=== PATIENT | female | born 1955 | race Caucasian/White ===

== ENCOUNTER → 2017-08-22 08:44 | Outpatient (CLI) | payer BC, SELFPAY ==
--- NOTE | 2017-08-22 08:49 | MM_ITS ---
MM Dig SC mamm unilat LT CAD CAD Screening ORDERING PHYSICIAN : Jennifer Yip PATIENT AGE: 62 years GENDER: Female COMPARISON: Previous mammograms: August INDICATION: Right mastectomy. 2017 routine follow-up left mammogram TECHNIQUE: Standard CC and MLO images were obtained left breast. R2 CAD reviewed. Limited compression on on initial left MLO view due to the patient's Port-A-Cath. A additional well only performed with more anteriorly is helpful FINDINGS: ===== LEFT BREAST: No significant interval change. No dominant mass nor suspicious calcification. Minimal fibroglandular elements throughout the left breast Follow-up in one year adequate Stable small left axillary lymph node measuring up to 9 mm and is unchanged since 2013. Fatty hilum seen laterally at this lymph node A second more lateral 4.5 mm small benign stable lymph node also seen towards the axillary left breast. Also stable since 2013 . These lymph node is been present since 2006 studies as well IMPRESSION: Stable left breast with no new areas of concern. Follow-up in one year recommended BI-RADS Category: 2 Benign Finding(s) RECOMMENDED FOLLOW-UP: 1YR - 1 YEAR FOLLOW-UP (A letter has been sent to the patient regarding results of the study.)
== END ==
PROVIDERS: Family Provider Family Medicine; PCP Family Medicine; Visit Provider Internal Medicine Hematology & Oncology
DX: Z12.31 Encounter for screening mammogram for malignant neoplasm of breast (principal); C50.911 Malignant neoplasm of unspecified site of right female breast; Z17.0 Estrogen receptor positive status [ER+]
CPT/HCPCS: 77067

== ENCOUNTER → 2017-12-25 13:57 | Outpatient (POV) | payer BC, SELFPAY | PROVIDERS: Family Provider Family Medicine; PCP Family Medicine | DX: Z00.00 Encounter for general adult medical examination without abnormal findings (principal) ==

== ENCOUNTER 2018-02-20 11:00 | Outpatient (RCR) | payer BC, SELFPAY ==
--- NOTE | 2017-12-23 10:37 | HMH.PTOPEV ---
PT Outpatient Evaluation Rehab PT Outpatient Evaluation Start: 12/23/17 10:21 Freq: Status: Active Protocol: Document 12/23/17 10:21 CHEPE (Rec: 12/23/17 10:37 CHEPE [id number]) Electronically Signed By Rafael Antonio, PT 12/23/17 10:21 Outpatient Therapy Subjective History Subjective History Pt presents w/generalized weakness and lymphedema following chemo treatments for R sided berast cancer s/p R mastectomy September 2012. Pt reports insidious onset R SH pain beginning 2-3 weeks ago, and reports fatigue following ~30min of wt. bearing activity , and swelling around abdominal area. Chief Complaint Pain Stiff Swelling Weakness Symptom Type Ache Sharp Dull Symptoms Relieved By Rest/Positioning Symptoms Aggravated By Standing Walking Prior Functional Limitations Reaching Lifting Housework Standing Walking Current Functional Limitations Reaching Lifting Housework Standing Walking Symptom Description Constant but Variable Level of pain today (0-10) 3 Pain scale - at its best (0-10) 3 Pain scale - at its worst (0-10) 5 Shoulder/Elbow Eval Shoulder Objective Measurements Palpation Tenderness tenderness shoulder exam standard right tenderness over the bicipital tendon right shoulder exam standard tenderness over the SA bursa shoulder right exam standard Shoulder Palpation Findings Tenderness Trigger Point Shoulder Palpation Overall Comment 2-3/4 Shoulder ROM Right Shoulder Abduction Active Range of 0-80 Motion (degrees) Shoulder Abduction Passive Range of 0-140 Motion (degrees) Shoulder Flexion Active Range of Motion 0-90 (degrees) Query Text: Shoulder Flexion Passive Range of Motion 0-140 (degrees) Shoulder MMT Left Shoulder Abduction Strength Grade 4 Good Shoulder Flexion Strength Grade 4 Good Right Shoulder Abduction Strength Grade 4- Good-
--- NOTE | 2018-01-22 11:11 | HMH.RHREAS ---
Rehab Reassessment Rehab OP Re-assessment Start: 01/22/18 11:01 Freq: Status: Active Protocol: Document 01/22/18 11:03 CHEPE (Rec: 01/22/18 11:11 CHEPE [id number]) Electronically Signed By Rafael Antonio, PT 01/22/18 11:03 Rehab Re-assessment Subjective Subjective Pt reports 0-3/10 R SH pain on VAS w/activity, and feels 90% better overall since I Eval Objective Objective Notes AROM: R SH FLX 0-140, ABD 0- 120 MMT: R SH FLX 4/5, ABD 4/5, B LE HIP ABD/EXT/FLX/ADD 4/5 GAIT ENDURANCE: 12MIN TTP: R SH 1-24 Assessment Progress Assessment Progressing as Expected Assessment Notes PT W/IMPROVED ROM, STRENGTH, AND TTP Patient goals met STG'S 09/09 LTG'S 06/17 Goals Not Met STG'S 06/12, LTG'S 02/14 Plan Plan Pt to cont. w/skilled PT to make further improvements w/ ROM, strength, and TTP to allow for optimal function Frequency of Therapy 2-3x/wk Duration of therapy 2-4wks Time and Billing Re-Eval Time 15 Re-Eval Billing Units 1 PHYSICIAN CERTIFICATION: I certify the specified therapy services for [place] Cristina Landon are required, authorized, and reviewed every 30 days.
== END 2018-02-20 11:01 | disposition home or self-care (01) ==
LOC: PT 11:00
PROVIDERS: Family Provider Family Medicine; PCP Family Medicine; Visit Provider Family Medicine
DX: M62.81 Muscle weakness (generalized) (principal); Z90.11 Acquired absence of right breast and nipple
CPT/HCPCS: 97010; 97014; 97016; 97110; 97140; 97163; 97164; 97760; G0283

== ENCOUNTER → 2018-10-02 08:44 | Outpatient (CLI) | payer BC, SELFPAY ==
--- NOTE | 2018-10-02 08:52 | MM_ITS ---
MM Dig SC mamm unilat LT CAD Ordering Physician: Catalino Soria MD Patient Age: 63 years Female HISTORY.:: Right breast cancer with right mastectomy. September 2016. Taking Anastrozole daily and Zometa every 6 months No new complaints. Noncontributory family history. COMPARISON: . Previous left mammogram August 2017 along with bilateral mammogram August 2016, , July 2015 also June 2013 TECHNIQUE: CC, MLO, axillary cc view left breast FINDINGS: Minimal residual fibroglandular elements but no significant new areas of concern at the remaining left breast. Left breast. No new areas of significant concern Stable benign intramammary node at the deep axillary left breast. measuring up to 8.5 mm size. Period just posterior to this is a smaller stable intramammary node measuring up to 4.6 mm mm size. BOTH of these is been present and stable since June 2013. Period Otherwise the Overall parenchymal pattern stable since 2013 with no new suspicious or dominant mass. No architectural change Left mammogram follow-up one year recommended IMPRESSION: ......] Stable left breast. No new areas of concern. Stable small benign intramammary nodes deep left breast-unchanged since studies dating back to 2013 Follow-up left mammogram in 1 year recommended BI-RADS Category: 2 Benign Finding(s) RECOMMENDED FOLLOW-UP: 1YR 1 YEAR FOLLOW-UP A letter has been sent to the patient regarding results of the study.)
== END ==
PROVIDERS: PCP Family Medicine; Visit Provider Family Medicine
DX: Z08 Encounter for follow-up examination after completed treatment for malignant neoplasm (principal); Z85.3 Personal history of malignant neoplasm of breast; Z90.11 Acquired absence of right breast and nipple
CPT/HCPCS: 77067

== ENCOUNTER → 2019-04-24 13:51 | Outpatient (CLI) | payer MEDICARE, OTHER, SELFPAY ==
--- NOTE | 2019-04-24 13:58 | XR_ITS ---
PROCEDURE: XR CHEST 2V CLINICAL HISTORY: BRONCHITIS Cough and wheezing COMPARISON: No exams were available for comparison FINDINGS: The cardiomediastinal silhouette and pulmonary vascularity are within normal limits. The lungs are clear without infiltrates, suspicious nodules, or pleural effusions. Multilevel thoracic spondylosis with endplate hypertrophic change and thoracic curvature convex right IMPRESSION: No acute findings. Dictated by: Shailesh Traylor MD 04/24/2019 17:49 Electronically signed by Shailesh Traylor MD in [place] 04/24/2019 17:49
== END ==
PROVIDERS: PCP Family Medicine; Visit Provider Physician Assistant
DX: J40 Bronchitis, not specified as acute or chronic (principal)
CPT/HCPCS: 71046

== ENCOUNTER → 2019-06-25 09:49 | Outpatient (CLI) | payer MEDICARE, OTHER, SELFPAY ==
--- NOTE | 2019-06-25 09:59 | XR_ITS ---
PROCEDURE: XR KNEE LT 3V CLINICAL INDICATION: BILAT KNEE PAIN COMPARISON: No exams were available for comparison FINDINGS: No fracture or dislocation. No lytic or blastic change. There is normal mineralization. There is mild degenerative loss of the medial compartment cartilaginous joint space. Other findings:There is no significant joint effusion. IMPRESSION: No acute findings. Dictated by: Wagner Barbosa 06/25/2019 12:07 Electronically signed by Wagner Barbosa in [place] 06/25/2019 12:07
--- NOTE | 2019-06-25 09:59 | XR_ITS ---
PROCEDURE: XR KNEE RT 3V CLINICAL INDICATION: BILAT KNEE PAIN COMPARISON: None FINDINGS: No fracture or dislocation. No lytic or blastic change. There is normal mineralization. Mild asymmetrical loss of medial compartment cartilaginous joint space suggesting osteoarthritis is noted. Other findings:Chronic appearing periosteal reaction is seen along the lateral shaft of the proximal fibula. IMPRESSION: No acute findings. Dictated by: Wagner Barbosa 06/25/2019 12:09 Electronically signed by Wagner Barbosa in [place] 06/25/2019 12:09
== END ==
PROVIDERS: PCP Family Medicine; Visit Provider Family Medicine
DX: M25.562 Pain in left knee (principal); M25.561 Pain in right knee
CPT/HCPCS: 73562

== ENCOUNTER → 2019-11-18 08:48 | Outpatient (CLI) | payer MEDICARE, OTHER, SELFPAY ==
--- NOTE | 2019-11-18 08:50 | MM_ITS ---
PROCEDURE: MM DIG SC MAMM UNILAT LT CAD DIGITAL BREAST TOMOSYNTHESIS INCLUDED Patient Age:64Y CLINICAL INDICATION: SCREENING no hormones. No new complaints. Noncontributory family history Right mastectomy for breast cancer COMPARISON: DMSB DIG MAMM-SCREEN CONCHIS from 07/13/2014 DMSB DIG MAMM-SCREEN CONCH[facility] from 07/18/2015 BR US BREAST-RT COMPLETE W/AXILLA from 08/10/2016 DMDBAV DIG MAMM-DX CONCHIS W/AVWS W/CAD from 08/10/2016 DMDXUR DIG MAMM-DX UNI-RT W/CAD from 08/20/2016 SCUNILT MM Dig SC mamm unilat LT CAD from 08/22/2017 DIG MAMM-SCREEN CONCHIS from 10/02/2018 TECHNIQUE: Left breast only standard CC and MLO images were obtained. R2 CAD reviewed. Bilateral digital breast tomosynthesis included. FINDINGS: [id number] l residual fibroglandular elements but no significant new areas of concern at the remaining left breast. Left breast. No new areas of significant concern Stable benign intramammary node at the deep axillary left breast. measuring up to 8 the mm size.. Just posterior to this is a smaller stable intramammary node measuring up to 4.6 mm mm size. BOTH of these is been present and stable since September 2018 and June 2013.. Mole markers again noted as well Overall parenchymal pattern stable since 2019. No new suspicious or dominant mass. No architectural change Left mammogram follow-up one year recommended IMPRESSION: Stable left breast. No new areas of concern. Stable small benign intramammary nodes deep left breast-unchanged since studies dating back to 2013 Follow-up left mammogram in 1 year recommended BI-RAD Category: 2 Benign Finding(s) FOLLOW-UP: 1YR 1 Year Follow-up (A letter has been sent to the patient regarding results of the study.) Dictated by: Kevin Barnes MD 11/19/2019 10:13 Electronically signed by Kevin Barnes MD in [place] 11/19/2019 10:13
== END ==
PROVIDERS: PCP Family Medicine; Visit Provider Family Medicine
DX: Z12.31 Encounter for screening mammogram for malignant neoplasm of breast (principal)
CPT/HCPCS: 77063; 77067

== ENCOUNTER → 2020-11-25 10:17 | Outpatient (CLI) | payer MEDICARE, OTHER, SELFPAY ==
--- NOTE | 2020-11-25 10:20 | MM_ITS ---
PROCEDURE INFORMATION: Exam: MG Screening 3D Mammography Exam date and time: 11/25/2020 10:20 AM Age: 65 years old Clinical indication: Encounter for screening mammogram for malignant neoplasm of breast. Personal history of right breast carcinoma treated with mastectomy. TECHNIQUE: Imaging protocol: Screening tomosynthesis and 2D mammography including computer-aided detection (CAD) when performed. COMPARISON: 1. MG MM DIG SC MAMM UNILAT LT CAD 11/18/2019 9:02 AM 2. MG DIG MAMM-SCREEN CONCHIS 10/02/2018 9:11 AM 3. MG SCUNILT MM Dig SC mamm unilat LT CAD 08/22/2017 9:02 AM FINDINGS: MAMMOGRAPHY: Breast composition: There are scattered areas of fibroglandular density. Mass: No new suspicious masses. Architectural distortion: No suspicious distortion. Calcifications: No suspicious calcifications. Asymmetric density: None. Skin thickening: None. Axillary adenopathy: None. IMPRESSION: No mammographic evidence of malignancy in the left breast. Annual screening is recommended unless otherwise clinically indicated. ASSESSMENT: BI-RADS Category 1: Negative
== END ==
PROVIDERS: PCP Family Medicine; Referring Provider Internal Medicine Hematology & Oncology; Visit Provider Family Medicine
DX: Z12.31 Encounter for screening mammogram for malignant neoplasm of breast (principal)
CPT/HCPCS: 77063; 77067

== ENCOUNTER → 2022-01-10 09:49 | Outpatient (CLI) | payer MEDICARE, OTHER, SELFPAY ==
--- NOTE | 2022-01-10 09:54 | MM_ITS ---
PROCEDURE INFORMATION: Exam: MG Left Screening 3D Mammography Exam date and time: 01/10/2022 9:49 AM Age: 66 years old Clinical indication: Screening examination . Personal history of right breast carcinoma treated with mastectomy. TECHNIQUE: Imaging protocol: Left Screening tomosynthesis and 2D mammography including computer-aided detection (CAD) when performed. COMPARISON: 1. MG MM DIG SC MAMM UNILAT LT CAD 11/25/2020 10:21 AM 2. MG MM DIG SC MAMM UNILAT LT CAD 11/18/2019 9:02 AM 3. MG DIG MAMM-SCREEN CONCHIS 10/02/2018 9:11 AM FINDINGS: MAMMOGRAPHY: Breast composition: There are scattered areas of fibroglandular density. Mass: No suspicious masses. Architectural distortion: No suspicious distortion. Calcifications: No suspicious calcifications. Asymmetric density: None. Skin thickening: None. Axillary adenopathy: None. IMPRESSION: No mammographic evidence of malignancy. Annual screening is recommended unless otherwise clinically indicated. ASSESSMENT: BI-RADS Category 1: Negative
== END ==
PROVIDERS: PCP Family Medicine; Visit Provider Family Medicine
DX: Z12.31 Encounter for screening mammogram for malignant neoplasm of breast (principal)
CPT/HCPCS: 77063; 77067

== ENCOUNTER → 2023-01-17 09:44 | Outpatient (CLI) | payer MEDICARE, OTHER, SELFPAY ==
--- NOTE | 2023-01-17 09:48 | MM_ITS ---
PROCEDURE INFORMATION: Exam: MG Left Screening 3D Mammography Exam date and time: 01/17/2023 9:46 AM Age: 67 years old Clinical indication: Screening mammogram. TECHNIQUE: Imaging protocol: Left Screening tomosynthesis and 2D mammography including computer-aided detection (CAD) when performed. COMPARISON: 1. MG MM DIG SC MAMM UNILAT LT CAD 01/10/2022 9:49 AM 2. MG MM DIG SC MAMM UNILAT LT CAD 11/25/2020 10:21 AM 3. MG MM DIG SC MAMM UNILAT LT CAD 11/18/2019 9:02 AM 4. MG DIG MAMM-SCREEN CONCHIS 10/02/2018 9:11 AM FINDINGS: MAMMOGRAPHY: Breast composition: There are scattered areas of fibroglandular density. There are scattered areas of fibroglandular density. Mass: Stable benign-appearing subcentimeter nodules are present in the left breast. No new or morphologically suspicious nodule has developed to suggest malignancy. Architectural distortion: No new or suspicious architectural distortion. Calcifications: No new or suspicious calcifications are present Asymmetric density: No new or suspicious asymmetric density is present Skin thickening: None. Axillary adenopathy: None. IMPRESSION: No mammographic evidence of malignancy. Recommend annual screening mammography unless otherwise clinically indicated. ASSESSMENT: BI-RADS category 2: Benign
== END ==
PROVIDERS: PCP Family Medicine; Visit Provider Family Medicine
DX: Z12.31 Encounter for screening mammogram for malignant neoplasm of breast (principal)
CPT/HCPCS: 77063; 77067

== ENCOUNTER 2024-03-09 10:33 | Outpatient (CLI) | payer MEDICARE, OTHER, SELFPAY ==
--- NOTE | 2024-03-09 10:40 | XR_ITS ---
PROCEDURE INFORMATION: Exam: XR Right Knee Exam date and time: 03/09/2024 10:59 AM Age: 68 years old Clinical indication: Pain; Knee; Right; Additional info: Chronic pain, nki TECHNIQUE: Imaging protocol: Radiologic exam of the right knee. Views: 3 views. COMPARISON: CR XR KNEE RT 3V 03/09/2024 10:59 AM FINDINGS: Bones/joints: No evidence of acute fracture or malalignment. No significant knee joint effusion. Mild tricompartmental degenerative osteoarthrosis with peaking of the tibial spines and minor marginal osteophytosis. Remainder joint space narrowing in the medial compartment. Soft tissues: Unremarkable. IMPRESSION: 1. No evidence of acute osseous abnormality in the right knee. 2. Mild tricompartmental degenerative osteoarthrosis, not significantly progressed from 06/25/2019 radiograph.
--- NOTE | 2024-03-09 10:40 | XR_ITS ---
PROCEDURE INFORMATION: Exam: XR Left Knee Exam date and time: 03/09/2024 10:59 AM Age: 68 years old Clinical indication: Knee; Left; Patient HX: Chronic pain, nki TECHNIQUE: Imaging protocol: Radiologic exam of the left knee. Views: 3 views. COMPARISON: CR XR KNEE LT 3V 06/25/2019 10:16 AM FINDINGS: Bones/joints: No evidence of acute fracture or malalignment. No significant knee joint effusion. Mild tricompartmental degenerative osteoarthrosis with peaking of the tibial spines and minor marginal osteophytosis. Remainder joint space narrowing in the medial compartment. Soft tissues: Unremarkable. IMPRESSION: 1. No evidence of acute osseous abnormality in the left knee. 2. Mild tricompartmental degenerative osteoarthrosis, not significantly progressed from 06/25/2019 radiograph.
== END 2024-03-09 23:59 | disposition home or self-care (01) ==
LOC: RAD 10:35
PROVIDERS: PCP Family Medicine; Visit Provider Family Medicine
DX: M25.561 Pain in right knee (principal); M25.562 Pain in left knee
CPT/HCPCS: 73562

== ENCOUNTER 2024-03-11 10:14 | Outpatient (CLI) | payer MEDICARE, OTHER, SELFPAY ==
--- NOTE | 2024-03-11 10:17 | MM_ITS ---
PROCEDURE INFORMATION: Exam: MG Left Screening 3D Mammography Exam date and time: 03/11/2024 10:10 AM Age: 69 years old Clinical indication: Screening examination. History of right breast cancer TECHNIQUE: Imaging protocol: Left Screening tomosynthesis and 2D mammography including computer-aided detection (CAD) when performed. COMPARISON: 1. MG MM DIG SC MAMM UNILAT LT CAD 01/17/2023 9:46 AM 2. MG MM DIG SC MAMM UNILAT LT CAD 01/10/2022 9:49 AM FINDINGS: MAMMOGRAPHY: Breast composition: There are scattered areas of fibroglandular density. Mass: None. Architectural distortion: None. Calcifications: No suspicious calcifications. Asymmetric density: None. Skin thickening: None. Axillary adenopathy: None. Other findings: The patient is status post right mastectomy IMPRESSION: No mammographic evidence of malignancy. Annual screening is recommended unless otherwise clinically indicated. ASSESSMENT: BI-RADS Category 1: Negative.
== END 2024-03-11 23:59 | disposition home or self-care (01) ==
LOC: RAD 10:15
PROVIDERS: PCP Family Medicine; Visit Provider Family Medicine
DX: Z12.31 Encounter for screening mammogram for malignant neoplasm of breast (principal)
CPT/HCPCS: 77063; 77067

== ENCOUNTER 2024-07-30 12:03 | Day surgery (SDC) | payer MEDICARE, OTHER, SELFPAY ==
[2024-07-29 11:16] VITALS: BMI 34.5
[2024-07-30 12:22] VITALS: BP 149/65; PULSE 72; RESP 18; TEMP 36.4; O2SAT 99
[2024-07-30] MEDS: LACTATED RINGERS 1000ML 1,000 ML 50 ML IV (12:30)
--- NOTE | 2024-07-30 13:38 | P.HP_ITS ---
History of Present Illness *Admission Date: 07/30/24 *Reason for visit:: Surveillance/personal history of adenomatous polyp *History of present illness: Mrs. Landon is a 69-year-old female who is here for surveillance colonoscopy secondary to a personal history of an adenomatous polyp. The examination is deemed medically necessary for surveillance colonoscopy. The patient has been seen, interviewed and examined prior to the procedure by both myself and the anesthesia provider. [facility] Disclaimer: The information contained in this section may have been updated after the patient was seen, as this information can be updated by other users. Medical History (Updated 07/30/24 @ 13:39 by Alfonso Iraheta II, MD) Hypertension Hypothyroid Breast cancer Surgical History History of mastectomy Family History Other No significant family history Social History Smoking Status: Never smoker alcohol intake: never current occupational status: retired Travel in the last 8 weeks: None caffeine: No Have you lived/traveled outside [place] in past 30 days?: No Contact w/someone who lives/traveled outside US past 30 days?: No Exposure to someone with infectious disease in past 14 days?: No Do you have a fever (greater than 100.4 F or 38 C)?: No Have you tested positive for COVID-19: No Exposed to someone with COVID-19 in past 14 days?: No Do you have a sore throat?: No Do you have a cough?: No Do you have any weakness?: No Do you have any diarrhea?: No Are you experiencing any unusual bleeding?: No Do you have any muscle aches/pain?: No Do you have any abdominal pain?: No Are you experiencing loss of taste or smell?: No Other Medical History Have you received the Pneumonia Vaccine: Yes Review of Systems Review of Systems Review of systems (narrative): Negative *Cardiovascular Comments: Negative *Gastrointestinal Comments: Negative *Genitourinary Comments: Negative *Musculoskeletal Comments: Negative *Neurologic Comments: Negative Meds Home Medications and Allergies Home Medications ?Medication ?Instructions ?Recorded ?Confirmed ?Type anastrozole 1 mg tablet 1 mg PO DAILY breast cancer 09/09/18 07/30/24 History levothyroxine 100 mcg tablet 100 mg PO DAILY thyroid 09/09/18 07/30/24 History lisinopril 10 1 tab PO DAILY bp 09/09/18 07/30/24 History mg-hydrochlorothiazide 12.5 mg tablet New Prescriptions to Start Prescriptions: Allergies Allergy/AdvReac Type Severity Reaction Status Date / Time famotidine Allergy Rash Verified 07/30/24 12:32 Exam Data for Last 24 hours Vital signs and Labs for Last 24 Hours: Temp Pulse Resp BP Pulse Ox O2 Del Method 97.6 F 72 18 149/65 H 99 Room Air 07/30/24 12:22 07/30/24 12:22 07/30/24 12:22 07/30/24 12:22 07/30/24 12:22 07/30/24 12:22 I & O for Last 24 hours: Intake & Output 07/27/24 07/28/24 07/29/24 07/30/24 23:59 23:59 23:59 23:59 Weight 195 lb *Routine HEENT Exam Head: Present normocephalic Eye: Present EOMI and PERRL ENT: Present mucous membranes moist *Routine Neck Exam Neck: Present supple *Routine Respiratory Exam Respiratory: Present CTA bilaterally *Routine Cardiovascular Exam Cardiovascular: Present RRR *Routine Abdominal Exam Abdominal: Present soft and normoactive bowel sounds; Absent tenderness *Routine Rectal Exam Rectal:: deferred *Routine Genitalia Exam Genitalia:: deferred *Routine Extremities Exam Extremities: Absent cyanosis, clubbing or edema *Routine Skin Exam Skin: Present warm; Absent rash *Routine Neurological Exam Neurological: Present alert and oriented X3 Assessment and Plan *Assessment and plan (1) Personal history of adenomatous and serrated colon polyps: Status: Acute Category: Medical Code(s): Z86.0101 - Personal history of adenomatous and serrated colon polyps Plan A/P: 1. Personal history of adenomatous colon polyps is the preprocedural diagnosis. The patient will be anesthetized/sedated using MAC sedation. The patient has been seen and examined. Cardiac and lung assessment prior to the examination is stable. Proceed with planned surveillance colonoscopy
--- NOTE | 2024-07-30 13:39 | P.PCN_ITS ---
[facility] Procedure Note Date: 07/30/24 Time: 13:56 Procedure Note:: Colonoscopy Procedure Report: Colonoscopy Endoscopist: Alfonso Iraheta II, MD Referring physician: Catalino Soria MD Date of Procedure: July 30, 2024 Equipment: Olympus 190 variable stiffness pediatric colonoscope Sedation: MAC sedation Indication: Mrs. Landon is a 69-year-old female who is here for follow-up surveillance colonoscopy. She had a colonoscopy in 2013 (Vikas Hussein M.D.) and had a single polyp (tubular adenoma) removed. Her last colonoscopy with co in September 2018 revealed a single polyp (2 mm tubular adenoma) which was removed. The patient reports no abdominal pain, weight loss, change in her bowel habits or rectal bleeding. She reports no family history of colon cancer. Procedure: Prior to the procedure, a history and physical exam was performed, and patient's medications and allergies were reviewed. The risks, benefits and alternatives of the sedation and procedure were discussed with the patient. All questions were answered and informed consent was obtained. The patient was brought to the procedure room. Patient identification and proposed procedure were verified by the physician and the nurse. The patient was placed in a left lateral decubitus position and the scope was passed under direct vision. Throughout the procedure, the patient's blood pressure, pulse, and oxygen saturations were monitored continuously. The colonoscopy was accomplished without difficulty. The patient tolerated the procedure well. Findings: On digital rectal examination there was normal rectal tone. There were no external hemorrhoids. The colonoscope was introduced through the anal canal to the rectum and advanced to the cecum. The ileocecal valve and appendiceal orifice were identified. The scope was advanced a short distance into the ileum which appeared grossly normal. The scope was then withdrawn into the colon. The cecum, ascending and transverse colon and mucosa were grossly normal. There were scattered diverticuli throughout the descending and sigmoid colon (LEFT colon). The rectum itself was normal. Upon retroflexion within the rectum there were small grade 1 internal hemorrhoids. The preparation was excellent throughout with [place] Preparation Score of 9. The cecal time was 10 minutes. Impression: 1. Left-sided diverticulosis 2. Grade 1 internal hemorrhoids Plan: The patient will not require any further preventive/surveillance colonoscopy. I would encourage bulking psyllium fiber supplementation on a long-term daily maintenance basis.
--- NOTE | 2024-07-30 13:42 | P.PNANES_ITS ---
[facility] Disclaimer: The information contained in this section may have been updated after the patient was seen, as this information can be updated by other users. Medical History Hypertension Hypothyroid Breast cancer Surgical History History of mastectomy Family History Other No significant family history Social History Smoking Status: Never smoker alcohol intake: never substance use type: denies use current occupational status: retired Travel in the last 8 weeks: None caffeine: No [facility] Anesthesia Checklist Patient Identification Patient Identification: Arm Band and Verbal (Name & ) Structural Data Admitted From: Home Planned Operative Procedure/s: colonscopy Consent for Planned Operative Procedure(s) Verified: Yes Verified Documents: Surgical Consent and History and Physical NPO Status Verified Time NPO: 00:00 Additional verifications Anesthesia Reactions: No Airway Assessment Mallampati Score:: Class II Dentition: Good Dentition Neurological Assessment Level of Consciousness: Awake, Alert and Appropriate Hx Seizures: No Numbness or tingling in extremities: No Anesthesia Plan Anesthesia Risk discussed: Yes Anesthesia Plan: Verified ASA Class: II Anesthesia Type: MAC
[2024-07-30 13:48] VITALS: O2SAT 99
[2024-07-30 13:59] VITALS: BP 81/43; PULSE 67; RESP 17; TEMP 36.3; O2SAT 97
[2024-07-30 14:09] VITALS: BP 104/54; PULSE 63; RESP 16; O2SAT 100
[2024-07-30 14:19] VITALS: BP 109/58; PULSE 65; RESP 16; O2SAT 99
[2024-07-30 14:29] VITALS: BP 115/53; PULSE 60; RESP 18; O2SAT 100
== END 2024-07-30 14:40 | disposition home or self-care (01) ==
PROVIDERS: PCP Family Medicine; Visit Provider Internal Medicine Gastroenterology
PROC: 0DJD8ZZ Inspection of Lower Intestinal Tract, Via Natural or Artificial Opening Endoscopic (ICD-10-PCS; CPT 45378; principal; 2024-07-30 13:30)
DX: K57.30 Diverticulosis of large intestine without perforation or abscess without bleeding (principal); K64.0 First degree hemorrhoids; Z86.0101 Personal history of adenomatous and serrated colon polyps
CPT/HCPCS: 45378; J7120

== ENCOUNTER 2025-05-03 08:14 | Outpatient (CLI) | payer MEDICARE, OTHER, SELFPAY ==
--- OUTSIDE RECORDS SUMMARY | 2024-01-01 04:00 | XMS_ITS ---
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 Name Role Phone Catalino Soria Primary Care Provider [phone] Allergies No Known Allergies REASON FOR VISIT 6 months Medications Medication SIG (Take, Route, Frequency, Duration) Notes Start Date End Date Status Metoprolol Succinate ER 25 MG 1 tablet Orally Once a day; Duration: 90 days Please hold until patient requests refill Active Lisinopril-hydroCHLORO thiazide 10-12.5 MG 1 tab(s) orally once a day; Duration: 90 days Please hold until patient requests refill Active Euthyrox 100 MCG 1 tablet in the morning on an empty stomach Orally Once a day; Duration: 90 days Please hold until patient requests refill Active Atorvastatin Calcium 20 MG 1 tab(s) orally once a day; Duration: 90 days Please hold until patient requests refill Active Immunizations Vaccine Route Administration Date Status Comme nts Fluzone High Dose (65yr and older) IM Intramuscular 01/01/2024 Administered Vital Signs Blood pressure systolic 130 mm Hg 01/01/20 24 Blood pressure diastolic 80 mm Hg 024 Heart Rate 65 /min 01/01/2024 Height 64 in 01/01/2024 Weight 201.6 lbs 01/01/2024 BMI 34.60 kg/m2 01/01/2024 Encounters Encounter Location Date Provider Diagnosis [place] [address] [place] [id number] 01/01/2024 Catalino Soria Essential hypertensi on I10 ; Acquired hypothyroidism E03.9 ; Pure hypercholesterolemia E78.00 ; Colon cancer screening Z12.11 and Encounter for immunization Z23 Assessments Encounter Date Diagnosis (ICD Code) Assessment Notes Treatment Notes Treatment Clinical Notes Section Notes 01/01/2024 Essential hypertensi on (ICD-10 - I10) 01/01/2024 Acquired hypothyroid ism (ICD-10 - E03.9) 01/01/2024 Pure hypercholesterolemia (ICD-10 - E78.00) 01/01/2024 Colon cancer screeni ng (ICD-10 - Z12.11) 01/01/2024 Encounter for immunization (ICD-10 - Z23) Plan Of Treatment Medication Medication Name Sig Start Date Stop Date Notes Metoprolol Succinate ER 25 MG 1 tablet Orally Once a day; Duration: 90 days Please hold until patient requests refill Lisinopril-hydroCHLOROthi azide 10-12.5 MG 1 tab(s) orally once a day; Duration: 90 days Please hold until patient requests refill Euthyrox 100 MCG 1 tablet in the morning on an empty stomach Orally Once a day; Duration: 90 days Please hold until patient requests refill Atorvastatin Calcium 20 MG 1 tab(s) orally once a day; Duration: 90 days Please hold until patient requests refill Pending Test Test Name Order Date colonoscopy 01/01/2024 Next Appt Details Follow Up: 6 Months, Reason: Provider Name:Catalino Coy , 07/08/2025 09:15:00 AM, [address] [facility] 36 [facility], [address], [place], [place], [id number], Progress Notes * Ishan SMITHOB:1955 (70 yo F)Acc No.[id number]:01/01/2024 Progress Notes Patient: Morena CORONADO Provider: Janina Soria M.D. :1955 A ge:68 Y S ex:Female Date:01/01/2024 Address:[address] [place] [address] SAMAN [id number] Subjective: * Chief Complaints: * 1 . 6 months. * HPI: C ardiology: 68 year old female presents with c/o Blood Pressure Elevated?Pt here for 6 mo f/u on hypertension, states she is doing well and does not have any concerns.? E ndocrinology: c/o Hypothyroidism P t here to f/u. * ROS: D ERMATOLOGY: no R yuli. n o H joe. G ASTROENTEROLOGY: no N ausea. n o V omiting. U ROLOGY: no D ifficulty urinating. n o B lood in urine. * Medical History: H ypertension, Hypothyroidism, Hyperlipidemia, Chiari Malformation, Colon Polyps, Allergic Rhinitis, Breast Cancer - Stage II (ER+, AZ+, Her2/radha+, Lymph node -) s/p right mastectomy 10/02/16 and chemo. * Surgical History: B rain Decompression 02/2011, Colonoscopy - 2013, 2019 2013, 2018, RT Mastectomy 10/02/2016. * Hospitalization/Major Diagno stic Procedure: D enies Past Hospitalization. * Family History: F ather: , Stroke. M other: alive. S iblings: Sister has MS. 1 brother(s) , 1 sister(s) . 3 daughter(s) - healthy. . * Social History: C URRENT TOBACCO USE S moking Status: Patient does NOT smoke. C affeine: yes, frequency: 1 cup a day. Exercise: no. Marital Status: . Alcohol: No. Sexually active: yes. * Medications: T aking Metoprolol Succinate ER 25 MG Tablet Extended Release 24 Hour 1 tablet Orally Once a day , Taking Euthyrox 100 MCG Tablet 1 tablet in the morning on an empty stomach Orally Once a day , Taking Lisinopril-hydroCHLOROthiazide 10-12.5 MG Tablet 1 tab(s) orally once a day , Taking Atorvastatin Calcium 20 MG Tablet 1 tab(s) orally once a day , Medication List reviewed and reconciled with the patient * Allergies: N .K.D.A. Objective: * Vitals: W t:201.6, Temp:98.0, BP:130/80, HR:65, Nurse:remigio, Ht: 64, BMI:34.60. * Examination: G eneral Examination: General Appearance: N AD. H EENT: u nremarkable.?Heart: R SR. L ungs: c lear to auscultation. P eripheral pulses: n ormal (2+) bilaterally. E xtremities: n o leg edema. Assessment: * Assessment: 1. E ssential hypertension - I10 (Primary) 2 . A cquired hypothyroidism - E03.9 3 . P ure hypercholesterolemia - E78.00 4 . C olon cancer screening - Z12.11 5 . E ncounter for immunization - Z23 Plan: * Treatment: 2. A cquired hypothyroidism Refill Euthyrox Tablet, 100 MCG, 1 tablet in the morning on an empty stomach, Orally, Once a day, 90 days, 90 Tablet, Refills 1, Notes to Pharmacist: Please hold until patient requests refill. ? 3. P ure hypercholesterolemia Refill Atorvastatin Calcium Tablet, 20 MG, 1 tab(s), orally, once a day, 90 days, 90 Tablet, Refills 1, Notes to Pharmacist: Please hold until patient requests refill. 4. C olon cancer screening I maging: colonoscopy * Immunizations: Fluzone High Dose (65yr and older) : 0.7 mL (Route: Intramuscular) given by Miesha Castanon on Left Deltoid (Encounter for immunization) * Procedure Codes: G 2211 Complex e/m visit add on, 3075F SYST BP GE 130 - 139MM HG, 3079F DIAST BP 80-89 MM HG * Follow Up: 6 Months * Images: Billing Information: * Visit Code: 56675 Office Visit, Est Pt., Level 4. * Procedure Codes: G2211 Complex e/m visit add on. 3075F SYST BP GE 130 - 139MM HG. 3079F DIAST BP 80-89 MM HG. * Electronic signature of Jodi Soria MD on 05/03/2025 at 08:18 AM EST Sign off status: Pending * Provider: Janina Soria M.D. Date: 0 01/01/2024 Generated for Shawanda aguilar/Eula/Lashae on: 1 08:18 AM EST History and Physical Notes * HPI (History of Present Illness) Category Sub-Category Detail Notes Category Not es Endocrinology Hypothyroidism Pt here to f/u Cardiology Blood Pressure Elevated Pt here for 6 mo f/u on hypertension, states she is doing well and does not have any concerns Examination Category Sub-Category Detail Notes Category Not es General Examination HEENT: unremarkable Heart: RSR Lungs: clear to auscultatio n Extremities: no leg edema General Appearance: NAD Peripheral pulses: normal (2+) bilatera lly
--- OUTSIDE RECORDS SUMMARY | 2024-03-09 05:00 | XMS_ITS ---
Author Organization [facility] Address [address] [facility] [address] [place] [id number] Care Team Providers Care Wool Washer Feeder Name Role Phone Catalino Soria Primary Care Provider Allergies No Known Allergies Results Component Value Reference Range Notes X ray : Knee, left Reviewed date:03/10/2024 10:19:03 AM Interpretation:No evidence of acute osseous abnormality in the left knee. Mild tricompartmental degenerative osteoarthrosis, not significantly progressed from 2019 Performing Lab: Notes/Report: No evidence of acute osseous abnormality in the left knee. Mild tricompartmental degenerative osteoarthrosis, not significantly progressed from 2019 X ray : Knee, right Reviewed date:03/10/2024 10:16:58 AM Interpretation:No evidence of acute osseous abnormality in the right knee. Mild tricompartmental degenerative osteoarthrosis, not significantly progressed from 2019 Performing Lab: Notes/Report: No evidence of acute osseous abnormality in the right knee. Mild tricompartmental degenerative osteoarthrosis, not significantly progressed from 2019 Reason For Referral Diagnosis 1 Pain in right knee ( M25.561) Diagnosis 2 Pain in left knee (M 25.562) Diagnosis 3 Arthritis of both kn ees (M17.0) Referral Organization [facility] Referring Provider First Name Catalino Referring Provider Last Name Estella Referring Provider Speciality Family Pra ctice Referred Provider Monty Oliver Referred Provider Specialty Orthopedic S urgery General Notes Angela Dougherty 03/09/20 10:27:23 AM > 09:45am on 03/12/2024; patient informed Referral Priority Routine REASON FOR VISIT pain in both knees Medications Medication SIG (Take, Route, Frequency, Duration) Notes Start Date End Date Status Lisinopril-hydroCHLOROthiaz marge 10-12.5 MG 1 tab(s) orally once a day; Duration: 90 days Active Euthyrox 100 MCG 1 tablet in the morn ing on an empty stomach Orally Once a day; Duration: 90 days Active Atorvastatin Calcium 20 MG 1 tab(s) oral ly once a day; Duration: 90 days Active Famotidine 40 MG 1 tablet Orally Once a day; Duration: 30 day(s) 03/09/2024 Active Meloxicam 7.5 MG 1 tablet Orally Once a day; Duration: 30 day(s) 03/09/2024 Active Metoprolol Succinate ER 25 MG 1 tablet Orally Once a day; Duration: 90 days Active Problems Problem Type SNOMED Code ICD Code Onset Dates Problem Status W/U Status Risk Notes Problem Chronic pain (07293535) Other chronic pain (G89.29) Active confirmed Problem Arthritis of both knees (8184196797061 108) Arthritis of both knees (M17.0) Active confirmed Vital Signs Blood pressure systolic 130 mm Hg 03/09/20 24 Blood pressure diastolic 80 mm Hg 024 Heart Rate 72 /min 03/09/2024 Height 64 in 03/09/2024 Weight 202.8 lbs 03/09/2024 BMI 34.81 kg/m2 03/09/2024 Encounters Encounter Location Date Provider Diagnosis [facility] [address] [facility] [address] [place] [address], [place] [id number] 03/09/2024 Catalino [place] Pain in right knee M25.561 ; Other chronic pain G89.29 ; Pain in left knee M25.562 and Arthritis of both knees M17.0 Assessments Encounter Date Diagnosis (ICD Code) Assessment Notes Treatment Notes Treatment Clinical Notes Section Notes 03/09/2024 Pain in right knee (ICD-10 - M25.561) 03/09/2024 Other chronic pain (ICD-10 - G89.29) 03/09/2024 Pain in left knee (ICD-10 - M25.562) 03/09/2024 Arthritis of both knees (ICD-10 - M17.0) Plan Of Treatment Medication Medication Name Sig Start Date Stop Date Notes Famotidine 40 MG 1 tablet Orally Once a day; Duration: 30 day(s) 03/09/2024 Meloxicam 7.5 MG 1 tablet Orally Once a day; Duration: 30 day(s) 03/09/2024 Referrals Referral Date Details 03/09/2024 03/09/2024, Monty sánchez Next Appt Details Follow Up: via phone to repo rt progress, Reason: Provider Name:Catalino Coy , 07/08/2025 09:15:00 AM, [address], [address], [place], [place], [id number], Progress Notes * Ishan SMITHOB:1955 (70 yo F)Acc No.[id number]:03/09/2024 Progress Notes Patient: Morena CORONADO Provider: Janina Soria M.D. :1955 A ge:68 Y S ex:Female Date:03/09/2024 Address:[address] [place] [address], [id number] Subjective: * Chief Complaints: * 1 . Pain in both knees. * HPI: K nee/Bishop: 68 year old female presents with c/o knee pain P t complains of bilateral knee pain for about 6 months. Pt states she has swelling as well and the pain does not improve at any point in the day. Pt states the pain has worsened over the time . * ROS: D ERMATOLOGY: no R yuli. n o H joe. G ASTROENTEROLOGY: no N ausea. n o V omiting. U ROLOGY: no D ifficulty urinating. n o B lood in urine. * Medical History: H ypertension, Hypothyroidism, Hyperlipidemia, Chiari Malformation, Colon Polyps, Allergic Rhinitis, Breast Cancer - Stage II (ER+, ID+, Her2/radha+, Lymph node -) s/p right mastectomy [...] tablet Orally Once a day , Taking Lisinopril-hydroCHLOROthiazide 10-12.5 MG Tablet 1 tab(s) orally once a day , Taking Euthyrox 100 MCG Tablet 1 tablet in the morning on an empty stomach Orally Once a day , Taking Atorvastatin Calcium 20 MG Tablet 1 tab(s) orally once a day , Medication List reviewed and reconciled with the patient * Allergies: N .K.D.A. Objective: * Vitals: W t:202.8, Temp:97.8, BP:130/80, HR:72, Nurse:remigio, Ht: 64, BMI:34.81. * Examination: G eneral Examination: General Appearance: N AD. K nee / Bishop: Knee: right. I nspection: effusion: moderate size. P alpation: tenderness on lateral jointline. C ollateral ligaments: intact medially and laterally. R héctor of motion: pain at extremes of motion. ? Assessment: * Assessment: 1. P ain in right knee - M25.561 (Primary) 2 . O ther chronic pain - G89.29? 3. P ain in left knee - M25.562 4 . A rthritis of both knees - M17.0 Plan: * Treatment: ? Referral To:Monty Oliver??Orthopedic Surgery ?Reason: 2.?Other chronic pain? Start Meloxicam Tablet, 7.5 MG, 1 tablet, Orally, Once a day, 30 day(s), 30 Tablet, Refills 0.??3.?Pain in left knee?Imaging: X ray : Knee, left (Performed Date - 03/09/2024)?No evidence of acute osseous abnormality in the left knee. Mild tricompartmental degenerative osteoarthrosis, not significantly progressed from 2019* Rosa Mccurdy 03/10/2024 10:1 8:57 AM > See phone encounter 4.?Arthritis of both knees? Referral To:Monty Oliver??Orthopedic Surgery ?Reason: 5.?Others? Start Famotidine Tablet, 40 MG, 1 tablet, Orally, Once a day, 30 day(s), 30 Tablet, Refills 0.? Referral To:Monty Oliver??Orthopedic Surgery ?Reason: * Follow Up: v ia phone to report progress * Images: Billing Information: * Visit Code: 27577 Office Visit, Est Pt., Level 3. * Procedure Codes: * Electronic signature of Jodi Soria MD on 05/03/2025 at 08:18 AM EST Sign off status: Pending * Provider: Janina Soria M.D. Date: 05/09/2023 Generated for Shawanda augilar/Eula/eTransmitting on: 08:18 AM EST History and Physical Notes * HPI (History of Present Illness) Category Sub-Category Detail Notes Category Not es Knee/Bishop knee pain Pt complains of bilateral knee pain for about 6 months. Pt states she has swelling as well and the pain does not improve at any point in the day. Pt states the pain has worsened over the time Examination Category Sub-Category Detail Notes Category Not es General Examination General Appearance: NAD Knee / Bishop Palpation: tenderness on la teral jointline Knee: right Inspection: effusion: moderate s ize Range of motion: pain at extremes of motion Collateral ligaments: intact medially an d laterally Consultation Request Notes Referral Date Referring Provider Referred Provider Not es 03/09/2024 Catalino Soria Gene
--- OUTSIDE RECORDS SUMMARY | 2024-05-07 05:30 | XMS_ITS ---
Author Organization [facility] Address [address] [facility] [address] [facility] [address] [place] [phone] Care Team Providers Care Construction Flagger Name Role Phone Catalino Soria Primary Care Provider Allergies No Known Allergies REASON FOR VISIT Bilateral Knee Pain Medications Medication SIG (Take, Route, Frequency, Duration) Notes Start Date End Date Status Lisinopril-hydroCHLOROthiaz marge 10-12.5 MG 1 tab(s) orally once a day; Duration: 90 days Active Atorvastatin Calcium 20 MG 1 tab(s) oral ly once a day; Duration: 90 days Active Euthyrox 100 MCG 1 tablet in the morn ing on an empty stomach Orally Once a day; Duration: 90 days Active Famotidine 40 MG 1 tablet Orally Once a day; Duration: 90 days 05/07/2024 Active Celecoxib 100 MG 1 capsule with food Orally Once a day; Duration: 90 days 05/07/2024 Active Metoprolol Succinate ER 25 MG 1 tablet Orally Once a day; Duration: 90 days Active Vital Signs Blood pressure systolic 154 mm Hg 05/07/19 25 Blood pressure diastolic 82 mm Hg 025 Heart Rate 70 /min 05/07/2024 Height 64 in 05/07/2024 Weight 200.6 lbs 05/07/2024 BMI 34.43 kg/m2 05/07/2024 Encounters Encounter Location Date Provider Diagnosis [facility] [address] [facility] [address] [place] [id number] 05/07/2024 Catalino [place] Arthritis of both knees M17.0 and Other chronic pain G89.29 Assessments Encounter Date Diagnosis (ICD Code) Assessment Notes Treatment Notes Treatment Clinical Notes Section Notes 05/07/2024 Arthritis of both knees (ICD-10 - M17.0) 05/07/2024 Other chronic pain (ICD-10 - G89.29) Plan Of Treatment Medication Medication Name Sig Start Date Stop Date Notes Famotidine 40 MG 1 tablet Orally Once a day; Duration: 90 days 05/07/2024 Celecoxib 100 MG 1 capsule with food Orally Once a day; Duration: 90 days 05/07/2024 Next Appt Details Follow Up: via phone to repo rt progress, Reason: Provider Name:Catalino Coy ry, 07/08/2025 09:15:00 AM, [address], [address], [place], [id number], Progress Notes * Ishan SMITHOB:1955 (70 yo F)Acc No.[id number]:05/07/2024 Progress Notes Patient: Morena CORONADO Provider: Janina Soria M.D. :1955 A ge:69 Y S ex:Female Date:05/07/2024 Address:[address] [place], [place] [address] [id number] Subjective: * Chief Complaints: * 1 . Bilateral Knee Pain. * HPI: R heumatology: 69 year old female presents with c/o joint pain P t complains of worsening bilateral knee pain. Pt states she does get Cortisone injection, last one was 03/2024. Pt would like to discuss an anti-inflammatory medication to help with pain between injections. Pt was rx'd Meloxicam in March and states she was taking that around the time she got injection so she is not sure if that helped with pain or not. * ROS: D ERMATOLOGY: no R yuli. n o H joe. G ASTROENTEROLOGY: no N ausea. n o V omiting. U ROLOGY: no D ifficulty urinating. n o B lood in urine. * Medical History: H ypertension, Hypothyroidism, Hyperlipidemia, Chiari Malformation, Colon Polyps, Allergic Rhinitis, Breast Cancer - Stage II (ER+, ME+, Her2/radha+, Lymph node -) s/p right mastectomy [...] 1 tab(s) orally once a day , Discontinued Meloxicam 7.5 MG Tablet 1 tablet Orally Once a day , Discontinued Pantoprazole Sodium 20 MG Tablet Delayed Release 1 tablet 1/2 to 1 hour before morning meal Orally Once a day , Medication List reviewed and reconciled with the patient * Allergies: N .K.D.A. Objective: * Vitals: W t:200.6, Temp:97.8, BP:154/82, HR:70, Nurse:remigio, Ht: 64, BMI:34.43. * Examination: G eneral Examination: General Appearance: N AD. Assessment: * Assessment: 1. A rthritis of both knees - M17.0 (Primary) 2 . O ther chronic pain - G89.29 Plan: * Treatment: 2. O thers Start Famotidine Tablet, 40 MG, 1 tablet, Orally, Once a day, 90 days, 90 Tablet, Refills 0. ? * Procedure Codes: G 2211 Complex e/m visit add on * Follow Up: v ia phone to report progress * Images: Billing Information: * Visit Code: 90615 Office Visit, Est Pt., Level 3. * Procedure Codes: G2211 Complex e/m visit add on. * Electronic signature of Jodi Soria MD on 05/03/2025 at 08:18 AM EST Sign off status: Pending * Provider: Janina Soria M.D. Date: 0 05/07/2024 Generated for Nicolasai lauren/Eula/eTransmitting on: 1 08:18 AM EST History and Physical Notes * HPI (History of Present Illness) Category Sub-Category Detail Notes Category Not es Rheumatology joint pain Pt complains of worsening bilateral knee pain. Pt states she does get Cortisone injection, last one was 03/2024. Pt would like to discuss an anti-inflammatory medication to help with pain between injections. Pt was rx'd Meloxicam in March and states she was taking that around the time she got injection so she is not sure if that helped with pain or not Examination Category Sub-Category Detail Notes Category Not es General Examination General Appearance: NAD
--- OUTSIDE RECORDS SUMMARY | 2024-07-08 04:00 | XMS_ITS ---
Author Organization [facility] Address [address] [facility] [address] [place] [id number] Care Team Providers Care Margin Analyst Name Role Phone Catalino Soria Primary Care Provider [phone] Allergies No Known Allergies Results Component Value Reference Range Notes P-Comprehensive Metabolic Pa mihir (CMP) Reviewed date:07/10/2024 11:01:56 AM Interpretation:bun 31 Performing Lab: Notes/Report: CLIA: [id number] Vince Barnes MD, Clinical Psychiatrist [address] [place] [address] , [address], [place] [address] Test performed by [facility], [facility] Sodium 141 135-145 mmol/L Potassium 4.6 3.5-5.3 mmol/L Chloride 103 97-108 mmol/L CO2 26 22-32 mmol/L Glucose 88 65-99 mg/dL BUN 31 8-23 mg/dL Creatinine 0.76 0.50-1.00 mg/dL Calcium 9.6 8.6-10.4 mg/dL eGFR by Creatinine 84 >59 mL/min/1.73m2 Protein 6.6 6.0-8.3 g/dL Albumin 4.1 3.5-5.3 g/dL Alkaline Phosphatase 83 35-121 IU/L ALT (SGPT) 15 <5-47 IU/L AST (SGOT) 17 <5-40 IU/L Bilirubin, Total 0.6 <0.2-1.2 mg/dL A/G Ratio 1.6 1.1-2.5 P-T4 Free (thyroxine) Reviewed date:07/10/2024 11:01:56 AM Interpretation:Normal Performing Lab: Notes/Report: Test performed by [facility] [address] [place] [address] [place] [address] Vince Barnes MD, Clinical Psychiatrist CLIA: [id number] Thyroxine Free (free T4) 1.87 0.86-1.76 ng/dL P-Lipid Panel Reviewed date:07/10/2024 11:01:56 AM Interpretation:Normal Performing Lab: Notes/Report: CLIA: [id number] Vince Barnes MD, Clinical Psychiatrist [address] [place] [address] [address], [place] [address] Test performed by [facility] Cholesterol 147 <200 mg/dL Triglycerides 37 <150 mg/dL HDL Cholesterol 56 >39 mg/dL Cholesterol / HDL Ratio 2.63 0.00-4.44 Ratio Non-HDL Cholesterol 91 <130 mg/dL LDL Cholesterol (Calculation) 84 <130 mg/dL LDL Cholesterol Levels* Less than 100 mg/dL Optimal 100 to 129 mg/dL Near Optimal/ Above Optimal 130 to 159 mg/dL Borderline High 160 to 189 mg/dL High 190 mg/dL and above Very High * Categories as recommended by the 2004 ATPIII guidelines LDL/HDL Ratio 1.5 <3.3 Ratio LDL Cholesterol Patient History Test Date: 07/03/2023 LDL Results: 80 Units: mg/dL % Change: - Test Date: 07/08/2024 LDL Results: 84 Units: mg/dL % Change: +5% P-TSH Reviewed date:07/10/2024 11:01:56 AM Interpretation:Normal Performing Lab: Notes/Report: Test performed by [facility] [address] [place], [place] [address] , [address], [place] [address] Vince Barnes MD, Clinical Psychiatrist CLIA: [id number] TSH 1.44 0.43-5.25 mU/L P-Microalbumin/Creatinine, R andom Urine Sample Reviewed date:07/10/2024 11:01:57 AM Interpretation:Normal Performing Lab: Notes/Report: Test performed by [facility] [address] [place], [place] [address] , [address], [place] [address] Vince Barnes MD, Clinical Psychiatrist CLIA: [id number] Albumin/Creatinine Ratio, Urine <3.8 0-30 ug/m g Microalbumin, Urine, Random <0.3 Creatinine, Urine 77.9 REASON FOR VISIT 6 months Medications Medication SIG (Take, Route, Frequency, Duration) Notes Start Date End Date Status Lisinopril-hydroCHLOROthiaz marge 10-12.5 MG 1 tab(s) orally once a day Active Metoprolol Succinate ER 25 MG 1 tablet Orally Once a day Active Atorvastatin Calcium 20 MG 1 tab(s) oral ly once a day Active Euthyrox 100 MCG 1 tablet in the morn ing on an empty stomach Orally Once a day Active Pantoprazole Sodium 20 MG 1 tablet 1/2 t o 1 hour before morning meal Orally Once a day 05/15/2024 Active Celecoxib 100 MG 1 capsule with food Orally Once a day 05/07/2024 Active Vital Signs Blood pressure systolic 128 mm Hg 07/09/19 25 Blood pressure diastolic 82 mm Hg 025 Heart Rate 58 /min 07/08/2024 Height 64 in 07/08/2024 Weight 199.6 lbs 07/08/2024 BMI 34.26 kg/m2 07/08/2024 Encounters Encounter Location Date Provider Diagnosis Romi [address] [facility] [address] [facility] [address] [place] [id number] 07/08/2024 Catalino Soria Essential hypertensi on I10 ; Pure hypercholesterolemia E78.00 ; Acquired hypothyroidism E03.9 and Arthritis of both knees M17.0 Assessments Encounter Date Diagnosis (ICD Code) Assessment Notes Treatment Notes Treatment Clinical Notes Section Notes 07/08/2024 Essential hypertensi on (ICD-10 - I10) 07/08/2024 Pure hypercholesterolemia (ICD-10 - E78.00) 07/08/2024 Acquired hypothyroid ism (ICD-10 - E03.9) 07/08/2024 Arthritis of both kn ees (ICD-10 - M17.0) Plan Of Treatment Medication Medication Name Sig Start Date Stop Date Notes Lisinopril-hydroCHLOROthiazi de 10-12.5 MG 1 tab(s) orally once a day Metoprolol Succinate ER 25 MG 1 tablet Orally Once a day Atorvastatin Calcium 20 MG 1 tab(s) orally once a day Euthyrox 100 MCG 1 tablet in the morn ing on an empty stomach Orally Once a day Pantoprazole Sodium 20 MG 1 tablet 1/2 t o 1 hour before morning meal Orally Once a day 05/15/2024 Celecoxib 100 MG 1 capsule with food Orally Once a day 05/07/2024 Next Appt Details Follow Up: 6 Months, Reason: Provider Name:Catalino Coy ry, 07/08/2025 09:15:00 AM, [address] [facility], [address], [place], [id number], Progress Notes * Ishan SMITHOB:1955 (70 yo F)Acc No.[id number]:07/08/2024 Progress Notes Patient: Janina Morena CHANCE Provider: Janina Soria M.D. :1955 A ge:69 Y S ex:Female Date:07/08/2024 Address:[facility] [address], [id number] Subjective: * Chief Complaints: * 1 . 6 months. * HPI: C ardiology: 69 year old female presents with c/o Blood Pressure Elevated?Pt here for 6 mo f/u on hypertension, states she is doing well and does not have any concerns.? c/o Hyperlipidemia P t is fasting today. E ndocrinology: c/o Hypothyroidism P t here to f/u. * ROS: D ERMATOLOGY: no R yuli. n o H joe. G ASTROENTEROLOGY: no N ausea. n o V omiting. U ROLOGY: no D ifficulty urinating. n o B lood in urine. * Medical History: H ypertension, Hypothyroidism, Hyperlipidemia, Chiari Malformation, Colon Polyps, Allergic Rhinitis, Breast Cancer - Stage II (ER+, MI+, Her2/radha+, Lymph node -) s/p right mastectomy [...] tab(s) orally once a day , Taking Celecoxib 100 MG Capsule 1 capsule with food Orally Once a day , Taking Pantoprazole Sodium 20 MG Tablet Delayed Release 1 tablet 1/2 to 1 hour before morning meal Orally Once a day , Medication List reviewed and reconciled with the patient * Allergies: N .K.D.A. Objective: * Vitals: W t:199.6, Temp:97.9, BP:128/82, HR:58, Nurse:remigio, Ht: 64, BMI:34.26. * Examination: G eneral Examination: General Appearance: N AD. H EENT: u nremarkable.?Heart: R SR. L ungs: c lear to auscultation. P eripheral pulses: n ormal (2+) bilaterally. E xtremities: b ilateral trace leg edema. Assessment: * Assessment: 1. E ssential hypertension - I10 (Primary) 2 . P ure hypercholesterolemia - E78.00 3 . A cquired hypothyroidism - E03.9 4 . A rthritis of both knees - M17.0 Plan: * Treatment: Value Reference Range A /G Ratio 1.6 1.1-2.5 - * A lbumin 4.1 3.5-5.3 - g/dL * A lkaline Phosphatase 83 35-121 - IU/L * A LT (SGPT) 15 <5-47 - IU/L * A ST (SGOT) 17 <5-40 - IU/L * B ilirubin, Total 0.6 <0.2-1.2 - mg/dL * B UN 31 H 8-23 - mg/dL * C alcium 9.6 8.6-10.4 - mg/dL * C hloride 103 97-108 - mmol/L * C O2 26 22-32 - mmol/L * C reatinine 0.76 0.50-1.00 - mg/dL * G lucose 88 65-99 - mg/dL * P otassium 4.6 3.5-5.3 - mmol/L * S odium 141 135-145 - mmol/L * P rotein 6.6 6.0-8.3 - g/dL * e GFR by Creatinine 84 >59 - mL/min/1.73m2 * Little Morgan 07/10/2024 11:01 :48 AM > See phone encounter ?LAB: P-Microalbumin/Creatinine, Random Urine Sample (Collection Date & Time - 07/08/2024 08:32 AM)?Normal* Value Reference Range A lbumin/Creatinine Ratio, Urine <3.8 0-30 - ug /mg * C reatinine, Urine 77.9 - mg/dL * M icroalbumin, Urine, Random <0.3 - mg/dL * Little Morgan 07/10/2024 11:01 :48 AM > See phone encounter 2.?Pure hypercholesterolemia? Continue Atorvastatin Calcium Tablet, 20 MG, 1 tab(s), orally, once a day.?LAB: P-Comprehensive Metabolic Panel (CMP) (Collection Date & Time - 07/08/2024 08:32 AM)?bun 31* Value Reference Range A /G Ratio 1.6 1.1-2.5 - * A lbumin 4.1 3.5-5.3 - g/dL * A lkaline Phosphatase 83 35-121 - IU/L * A LT (SGPT) 15 <5-47 - IU/L * A ST (SGOT) 17 <5-40 - IU/L * B ilirubin, Total 0.6 <0.2-1.2 - mg/dL * B UN 31 H 8-23 - mg/dL * C alcium 9.6 8.6-10.4 - mg/dL * C hloride 103 97-108 - mmol/L * C O2 26 22-32 - mmol/L * C reatinine 0.76 0.50-1.00 - mg/dL * G lucose 88 65-99 - mg/dL * P otassium 4.6 3.5-5.3 - mmol/L * S odium 141 135-145 - mmol/L * P rotein 6.6 6.0-8.3 - g/dL * e GFR by Creatinine 84 >59 - mL/min/1.73m2 * Little Morgan 07/10/2024 11:01 :48 AM > See phone encounter ?LAB: P-Lipid Panel (Collection Date & Time - 07/08/2024 08:32 AM)?Normal* Value Reference Range C holesterol / HDL Ratio 2.63 0.00-4.44 - Ratio * C holesterol 147 <200 - mg/dL * H DL Cholesterol 56 >39 - mg/dL * L DL Cholesterol (Calculation) 84 <130 - mg/d L * L DL/HDL Ratio 1.5 <3.3 - Ratio * N on-HDL Cholesterol 91 <130 - mg/dL * T riglycerides 37 <150 - mg/dL * Little Morgan 07/10/2024 11:01 :48 AM > See phone encounter 3.?Acquired hypothyroidism? Continue Euthyrox Tablet, 100 MCG, 1 tablet in the morning on an empty stomach, Orally, Once a day. ?LAB: P-T4 Free (thyroxine) (Collection Date & Time - 07/08/2024 08:32 AM)? Normal* Value Reference Range T hyroxine Free (free T4) 1.87 H 0.86-1.76 - ng/d L * Little Morgan 07/10/2024 11:01 :48 AM > See phone encounter ?LAB: P-TSH (Collection Date & Time - 07/08/2024 08:32 AM)?Normal* Value Reference Range T SH 1.44 0.43-5.25 - mU/L * Little Morgan 07/10/2024 11:01 :48 AM > See phone encounter 4.?Arthritis of both knees? Continue Celecoxib Capsule, 100 MG, 1 capsule with food, Orally, Once a day.?? 5.?Others? Continue Pantoprazole Sodium Tablet Delayed Release, 20 MG, 1 tablet 1/2 to 1 hour before morning meal, Orally, Once a day.?? * Procedure Codes: G 2211 Complex e/m visit add on, 3074F SYST BP LT 130 MM HG, 3079F DIAST BP 80-89 MM HG * Follow Up: 6 Months * Images: Billing Information: * Visit Code: 53039 Office Visit, Est Pt., Level 4. * Procedure Codes: G2211 Complex e/m visit add on. 3074F SYST BP LT 130 MM HG. 3079F DIAST BP 80-89 MM HG. * Electronic signature of Jodi Soria MD on 05/03/2025 at 08:17 AM EST Sign off status: Pending * Provider: Janina Soria M.D. Date: 0 07/08/2024 Generated for Shawanda aguilar/Eula/eTransmitting on: 1 08:17 AM EST History and Physical Notes * HPI (History of Present Illness) Category Sub-Category Detail Notes Category Not es Endocrinology Hypothyroidism Pt here to f/u Cardiology Blood Pressure Elevated Pt here for 6 mo f/u on hypertension, states she is doing well and does not have any concerns Hyperlipidemia Pt is fasting today Examination Category Sub-Category Detail Notes Category Not es General Examination HEENT: unremarkable Heart: RSR Lungs: clear to auscultatio n Extremities: bilateral trace leg edema General Appearance: NAD Peripheral pulses: normal (2+) bilatera lly
--- OUTSIDE RECORDS SUMMARY | 2025-01-08 04:00 | XMS_ITS ---
Author Organization [facility] [address] [facility] [address] [place] [id number] Care Team Providers Care Service Control Operator Name Role Phone Catalino Soria Primary Care Provider [phone] Allergies No Known Allergies REASON FOR VISIT 6 month check Medications Medication SIG (Take, Route, Frequency, Duration) Notes Start Date End Date Status Metoprolol Succinate ER 25 MG 1 tablet Orally Once a day Active Euthyrox 100 MCG 1 tablet in the morn ing on an empty stomach Orally Once a day Active Atorvastatin Calcium 20 MG 1 tab(s) oral ly once a day Active Lisinopril-hydroCHLOROthiaz marge 10-12.5 MG 1 tab(s) orally once a day Active Pantoprazole Sodium 20 MG 1 tablet 1/2 t o 1 hour before morning meal Orally Once a day; Duration: 90 days Active DULoxetine HCl 30 MG 1 capsule Orally On ce a day; Duration: 90 days 01/08/2025 Active Problems Problem Type SNOMED Code ICD Code Onset Dates Problem Status W/U Status Risk Notes Problem Chiari malformation ([id number]) 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 [address] [place] [id number] 01/08/2025 Catalino Soria Essential hypertensi on I10 ; Acquired hypothyroidism E03.9 ; Pure hypercholesterolemia E78.00 ; Arthritis of both knees M17.0 ; Other chronic pain G89.29 ; Non morbid obesity E66.9 ; Arnold-Chiari syndrome without spina bifida or hydrocephalus Q07.00 and BMI 35.0-35.9,adult Z68.35 Assessments Encounter Date Diagnosis (ICD Code) Assessment Notes Treatment Notes Treatment Clinical Notes Section Notes 01/08/2025 Essential hypertensi on (ICD-10 - I10) 01/08/2025 Acquired hypothyroid ism (ICD-10 - E03.9) 01/08/2025 Pure hypercholesterolemia (ICD-10 - E78.00) 01/08/2025 Arthritis of both kn ees (ICD-10 - M17.0) 01/08/2025 Other chronic pain (ICD-10 - G89.29) 01/08/2025 Non morbid obesity (ICD-10 - E66.9) 01/08/2025 Arnold-Chiari syndro me without spina bifida or hydrocephalus (ICD-10 - Q07.00) 01/08/2025 BMI 35.0-35.9,adult (ICD-10 - Z68.35) Plan Of Treatment Medication Medication Name Sig Start Date Stop Date Notes Metoprolol Succinate ER 25 MG 1 tablet Orally Once a day Euthyrox 100 MCG 1 tablet in the morn ing on an empty stomach Orally Once a day Atorvastatin Calcium 20 MG 1 tab(s) orally once a day Celecoxib 100 MG 1 capsule Orally Onc e a day Lisinopril-hydroCHLOROthiazi de 10-12.5 MG 1 tab(s) orally once a day DULoxetine HCl 30 MG 1 capsule Orally On ce a day; Duration: 90 days 01/08/2025 Next Appt Details Follow Up: 6 Months, Reason: Provider Name:Catalino damon, 07/08/2025 09:15:00 AM, [address] [facility], [address], [place], [id number], Progress Notes * Ishan SMITHOB:1955 (70 yo F)Acc No.[id number]:01/08/2025 Progress Notes Patient: Morena CORONADO Provider: Janina Soria M.D. :1955 A ge:69 Y S ex:Female Date:01/08/2025 Address:[address] [place], [place] [address], [id number] Subjective: * Chief Complaints: * 1 . 6 month check. * HPI: C ardiology: 69 year old female presents with c/o Blood Pressure Elevated?Pt here for 6 mo check up on hypertension. Pt states she is doing well and does not have any concerns at this time. c/o Hyperlipidemia P t is fasting today. E ndocrinology: c/o Hypothyroidism P t here for 6 mo check up. * ROS: D ERMATOLOGY: no R yuli. n o H joe. G ASTROENTEROLOGY: no N ausea. n o V omiting. U ROLOGY: no D ifficulty urinating. n o B lood in urine. * Medical History: H ypertension, Hypothyroidism, Hyperlipidemia, Chiari Malformation, Colon Polyps, Allergic Rhinitis, Breast Cancer - Stage II (ER+, MO+, Her2/radha+, Lymph node -) s/p right mastectomy [...] . * Social History: C URRENT TOBACCO USE: No S moking Status: Patient does NOT smoke. C affeine: yes, frequency: 1 cup a day. Exercise: no. Marital Status: . Alcohol: No. Sexually active: yes. * Medications: T aking Atorvastatin Calcium 20 MG Tablet 1 tab(s) orally once a day , Taking Euthyrox 100 MCG Tablet 1 tablet in the morning on an empty stomach Orally Once a day , Taking Lisinopril-hydroCHLOROthiazide 10-12.5 MG Tablet 1 tab(s) orally once a day , Taking Metoprolol Succinate ER 25 MG Tablet Extended Release 24 Hour 1 tablet Orally Once a day , Taking Pantoprazole Sodium 20 MG Tablet Delayed Release 1 tablet 1/2 to 1 hour before morning meal Orally Once a day , Taking Celecoxib 100 MG Capsule 1 capsule Orally Once a day , Medication List reviewed and reconciled with the patient * Allergies: N .K.D.A. Objective: * Vitals: W t: 207, Temp: 97.9, BP: 132/78, HR: 70, Nurse: remigio, Ht: 64, BMI:35.53. * Examination: G eneral Examination: General Appearance: N AD. H EENT: u nremarkable.?Heart: R SR. L ungs: c lear to auscultation. P eripheral pulses: n ormal (2+) bilaterally. E xtremities: b ilateral trace leg edema. Assessment: * Assessment: 1. E ssential hypertension - I10 (Primary) 2 . A cquired hypothyroidism - E03.9 3 . P ure hypercholesterolemia - E78.00 4 . A rthritis of both knees - M17.0 5 . O ther chronic pain - G89.29 6 . N on morbid obesity - E66.9 7 . A rnold-Chiari syndrome without spina bifida or hydrocephalus - Q07.00 8 . B NH 35.0-35.9,adult - Z68.35 Plan: * Treatment: 2. A cquired hypothyroidism Continue Euthyrox Tablet, 100 MCG, 1 tablet in the morning on an empty stomach, Orally, Once a day.? 3. P ure hypercholesterolemia Continue Atorvastatin Calcium Tablet, 20 MG, 1 tab(s), orally, once a day. 4. O ther chronic pain Start DULoxetine HCl Capsule Delayed Release Particles, 30 MG, 1 capsule, Orally, Once a day, 90 days, 90 Capsule, Refills 0. 5. O thers Stop Celecoxib Capsule, 100 MG, 1 capsule, Orally, Once a day. * Procedure Codes: G 2211 Complex e/m visit add on, 1036F TOBACCO NON-USER, G8950 PREHTN/HTN BP DOC INDCD F/U DOC, G8752 MOST RECENT SYSTOLIC BP < 140MM HG, G8754 MOST RECENT DIASTOLIC BP < 90MM HG * Follow Up: 6 Months * Images: Billing Information: * Visit Code: 85007 Office Visit, Est Pt., Level 4. * Procedure Codes: G2211 Complex e/m visit add on. 1036F TOBACCO NON-USER. G8950 PREHTN/HTN BP DOC INDCD F/U DOC. G8752 MOST RECENT SYSTOLIC BP < 140MM HG. G8754 MOST RECENT DIASTOLIC BP < 90MM HG. * Electronic signature of Jodi Soria MD on 05/03/2025 at 08:18 AM EST Sign off status: Pending * Provider: Janina Soria M.D. Date: 0 01/08/2025 Generated for Shawanda aguilar/Eula/Luz Mariaitting on: 1 08:18 AM EST History and Physical Notes * HPI (History of Present Illness) Category Sub-Category Detail Notes Category Not es Endocrinology Hypothyroidism Pt here for 6 mo check up Cardiology Blood Pressure Elevated Pt here for 6 mo check up on hypertension. Pt states she is doing well and does not have any concerns at this time Hyperlipidemia Pt is fasting today Examination Category Sub-Category Detail Notes Category Not es General Examination HEENT: unremarkable Heart: RSR Lungs: clear to auscultatio n Extremities: bilateral trace leg edema General Appearance: NAD Peripheral pulses: normal (2+) bilatera lly
--- OUTSIDE RECORDS SUMMARY | 2025-05-03 08:18 | XMS_ITS ---
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 She is euthyroid on her current dose of medication. The antibodies have been in her blood for years. It is controversial as to whether these antibodies do anything other than cause hypothyroidism- ie muscle aches and pains and fatigue independent of abnormal thyroid function. It is also controversial as to how to treat these antibodies. There are anecdotal reports that going on a gluten free diet can lower the titers but there are no controlled studies that support this. There was one study out of [place] that showed that thyroidectomy lowered the antibodies and improved symptoms but that is not yet standard of care unless patient has symptomatic goiter. At this point, no changes to her treatment are needed. S/P mastectomy, right 12/18/2018 Malignant neoplasm of right female breast 2016 Cancer Staging:Pathologic stage from 10/02/2016:Stage IIA(T2, N0, cM0) - Signed by Jennifer Yip MD on 01/09/2017 Current Treatment and Therapy Plans No current plan information found. Past Treatment and Therapy Plans ONCOLOGY SUPPORTIVE CARE 1 Plan Name Start Date Discontinue Date Treatment Medications Discontinue Reason Plan Provider Cycles OP Zoledronic Acid Q6M 8 02/19/2025 zoledronic acid (ZOMETA) IVPB Other - Enter Reason in Comments Jennifer Yip MD 4 of 4 cycles started ONCOLOGY TREATMENT Plan Name Start Date Discontinue Date Treatment Medications Discontinue Reason Plan Provider Cycles OP BREAST Trastuzumab Q21D (maintenance) 017 02/17/2025 trastuzumab (HERCEPTIN) chemo IVPB Other - Enter Reason in Comments Jennifer Yip MD 12 of 12 cycles started OP BREAST TCH Trastuzumab / DOCEtaxel / CARBOplatin 7 03/20/2017 CARBOplatin (PARAPLATIN) chemo IVPB (by AUC)DOCEtaxel (TAXOTERE) chemo IVPBpegfilgrastim (NEULASTA ONPRO)pegfilgrastim (NEULASTA)trastuzum ab (HERCEPTIN) chemo IVPB Therapy Complete Jennifer Yip MD 6 of 6 cycles started Therapy Plan 1 - Infusion Treatment Plan Name Start Date Discontinue Date Treatment Medications Discontinue Reason Plan Provider OP CENTRAL VENOUS ACCESS DEVICE CARE AND MAINTENANCE 11/07/2016 02/17/2025 No medications scheduled. Other - Enter Reason in Comments Jennifer Yip MD Resolved Problems Problem Noted Date Diagnosed Date Resolved Date Malignant neoplasm of right breast in female, estrogen receptor positive 05/01/2017 06/19/2017 Breast cancer 10/02/2016 01/09/2017
--- OUTSIDE RECORDS SUMMARY | 2025-05-03 08:18 | XMS_ITS ---
Author Organization Unknown Results OrderDate OrderTestName ResultName ResultDate Value Units Range AbnormalFlag ResultStatus ObservationNotes TestCode ResultCode DateRecorded AccessionNumber DiagnosticSectionCode DiagnosticSectionName Sequence Interpretation Custom CollectionStartDate CollectionEndDate 07/08/2024 00:00:00 P-Microalbumin/Creatinine, Random Urine Sample Microalbumin, Urine, Random 2431-00-73Y95:00:00 <0.3 mg/dL - mg/dL Little Randolph 07/10/2024 11:01:48 AM > See phone encounter P-Microalbumin/Creatinine, R andom Urine Sample Coding Microalbumin, Urine, Random 07/08/2024 00:00: 00:00:00P-Microalbumin/Creatinine, Random Urine SampleCreatinine, Jzmhb5411-62-02T24:00:0077.9mg/dL- mg/dLReLittle Turner 07/10/2024 11:01:48 AM > See phone encounter Coding P-Microalbumin/Creatinine, R andom Urine Sample Coding Creatinine, Urine 07/08/2024 00:00: 00:00:00P-Microalbumin/Creatinine, Random Urine SampleAlbumin/Creatinine Ratio, Kvecd8022-04-08E37:00:00<3.8ug/mg0-30 - ug/mg Little Garcia 07/10/2024 11:01:48 AM > See phone encounter Coding P-Microalbumin/Creatinine, R andom Urine Sample Coding Albumin/Creatinine Ratio, Ur ine 07/08/2024 00:00: 00:00:86K-[id number]9:00:001.44mU/L0.43- 5.25 - mU/LRevieLittle Tadeo 07/10/2024 11:01:48 AM > See phone encounter Coding P-TSH Coding TSH 07/08/2024 00:00: 00:00:00P-Lipid PanelTriglycerides 2172-60-24T84:00:0037mg/dL<150 - mg/dLLittle Garcia 07/10/2024 11:01:48 AM > See phone encounter Coding P-Lipid Panel Coding Triglycerides 07/08/2024 00:00: 00:00:00P-Lipid PanelNon-HDL Cholesterol 0445-11-42N64:00:0091mg/dL<130 - mg/dLLittle Garcia 07/10/2024 11:01:48 AM > See phone encounter Coding P-Lipid Panel Coding Non-HDL Cholesterol 07/08/2024 00:00: 00:00:00P-Lipid PanelLDL/HDL Ratio 4477-99-42R43:00:001.5Ratio<3.3 - RatioReLittle Turner 07/10/2024 11:01:48 AM > See phone encounter Coding P-Lipid Panel Coding LDL/HDL Ratio 07/08/2024 00:00: 00:00:00P-Lipid PanelLDL Cholesterol (Calculation) 7480-46-67J83:00:0084mg/dL<130 - mg/dLLittle Garcia 07/10/2024 11:01:48 AM > See phone encounter Coding P-Lipid Panel Coding LDL Cholesterol (Calculation ) 07/08/2024 00:00: 00:00:00P-Lipid PanelHDL Cholesterol 2352-23-52B01:00:0056mg/dL>39 - mg/dLLittle Garcia 07/10/2024 11:01:48 AM > See phone encounter Coding P-Lipid Panel Coding HDL Cholesterol 07/08/2024 00:00: 00:00:00P-Lipid PanelCholesterol 9313-40-88D08:00:39145no/dL<200 - mg/dLLittle Garcia 07/10/2024 11:01:48 AM > See phone encounter Coding P-Lipid Panel Coding Cholesterol 07/08/2024 00:00: 00:00:00P-Lipid PanelCholesterol / HDL Ratio 2698-71-89F36:00:002.52Nblkk8.00-4.44 - RatioReLittle Turner 07/10/2024 11:01:48 AM > See phone encounter Coding P-Lipid Panel Coding Cholesterol / HDL Ratio 07/08/2024 00:00: 00:00:00P-T4 Free (thyroxine)Thyroxine Free (free T4)1798-46-04O90:00:001.87ng/dL0.86-1.76 - ng/dLLittle Cloud 07/10/2024 11:01:48 AM > See phone encounter Coding P-T4 Free (thyroxine) Coding Thyroxine Free (free T4) 07/08/2024 00:00: 00:00:00P-Comprehensive Metabolic Panel (CMP)eGFR by Dhobadrtfp0107-47-15X65:00:0084mL/min/1.73m2>59 - mL/min/1.36p8PtazzveqLittle Randolph 07/10/2024 11:01:48 AM > See phone encounter Coding P-Comprehensive Metabolic Pa mihir (CMP) 07/08/2024 00:00: 00:00:00P-Comprehensive Metabolic Panel (CMP) Cprkijy2692-01-41H27:00:006.6g/dL6.0-8.3 - g/dLLittle Garcia 07/10/2024 11:01:48 AM > See phone encounter Coding P-Comprehensive Metabolic Pa mihir (CMP) Coding Protein 07/08/2024 00:00: 00:00:00P-Comprehensive Metabolic Panel (CMP) Kdhlfk7965-97-44A85:00:23372xzjq/T994-128 - mmol/LRevLittle Chaidez 07/10/2024 11:01:48 AM > See phone encounter Coding P-Comprehensive Metabolic Pa mihir (CMP) Coding Sodium 07/08/2024 00:00: 00:00:00P-Comprehensive Metabolic Panel (CMP) Edsvnpdsz7876-36-47X55:00:004.6mmol/L3.5-5.3 - mmol/LRLittle Ordaz 07/10/2024 11:01:48 AM > See phone encounter Coding P-Comprehensive Metabolic Pa mihir (CMP) Coding Potassium 07/08/2024 00:00: 00:00:00P-Comprehensive Metabolic Panel (CMP) Rgtzaah3722-84-32X53:00:0088mg/dL65-99 - mg/dLLittle Garcia 07/10/2024 11:01:48 AM > See phone encounter Coding P-Comprehensive Metabolic Pa mihir (CMP) Coding Glucose 07/08/2024 00:00: 00:00:00P-Comprehensive Metabolic Panel (CMP) Woqiykggaa6858-41-81D36:00:000.76mg/dL0.50-1.00 - mg/dLLittle Garcia 07/10/2024 11:01:48 AM > See phone encounter Coding P-Comprehensive Metabolic Pa mihir (CMP) Coding Creatinine 07/08/2024 00:00: 00:00:00P-Comprehensive Metabolic Panel (CMP)CO2 6808-03-02L09:00:0026mmol/L22-32 - mmol/Little Guerra 07/10/2024 11:01:48 AM > See phone encounter Coding P-Comprehensive Metabolic Pa mihir (CMP) Coding CO2 07/08/2024 00:00: 00:00:00P-Comprehensive Metabolic Panel (CMP) Oqyjlfzt6253-38-13P58:00:29766rdkf/L97-108 - mmol/Little Guerra 07/10/2024 11:01:48 AM > See phone encounter Coding P-Comprehensive Metabolic Pa mihir (CMP) Coding Chloride 07/08/2024 00:00: 00:00:00P-Comprehensive Metabolic Panel (CMP) Kfpcqjo3251-85-24W13:00:009.6mg/dL8.6-10.4 - mg/dLLittle Garcia 07/10/2024 11:01:48 AM > See phone encounter Coding P-Comprehensive Metabolic Pa mihir (CMP) Coding Calcium 07/08/2024 00:00: 00:00:00P-Comprehensive Metabolic Panel (CMP)BUN 7229-18-47N13:00:0031mg/dL8-23 - mg/dLLittle Cloud 07/10/2024 11:01:48 AM > See phone encounter Coding P-Comprehensive Metabolic Pa mihir (CMP) Coding BUN 07/08/2024 00:00: 00:00:00P-Comprehensive Metabolic Panel (CMP) Bilirubin, Jasro0272-77-05O42:00:000.6mg/dL<0.2-1.2 - mg/dLLittle Garcia 07/10/2024 11:01:48 AM > See phone encounter Coding P-Comprehensive Metabolic Pa mihir (CMP) Coding Bilirubin, Total 07/08/2024 00:00: 00:00:00P-Comprehensive Metabolic Panel (CMP)AST (SGOT)0539-68-86L30:00:0017IU/L<5-40 - IU/LRLittle Ordaz 07/10/2024 11:01:48 AM > See phone encounter Coding P-Comprehensive Metabolic Pa mihir (CMP) Coding AST (SGOT) 07/08/2024 00:00: 00:00:00P-Comprehensive Metabolic Panel (CMP)ALT (SGPT)1815-33-10I39:00:0015IU/L<5-47 - IU/LRevLittle Chaidez 07/10/2024 11:01:48 AM > See phone encounter Coding P-Comprehensive Metabolic Pa mihir (CMP) Coding ALT (SGPT) 07/08/2024 00:00: 00:00:00P-Comprehensive Metabolic Panel (CMP) Alkaline Iyubrdgpjmp8613-26-86D01:00:0083IU/L35-121 - IU/LRevLittle Chaidez 07/10/2024 11:01:48 AM > See phone encounter Coding P-Comprehensive Metabolic Pa mihir (CMP) Coding Alkaline Phosphatase 07/08/2024 00:00: 00:00:00P-Comprehensive Metabolic Panel (CMP) Dmdbtho4189-15-25C19:00:004.1g/dL3.5-5.3 - g/dLReLittle Turner 07/10/2024 11:01:48 AM > See phone encounter Coding P-Comprehensive Metabolic Pa mihir (CMP) Coding Albumin 07/08/2024 00:00: 00:00:00P-Comprehensive Metabolic Panel (CMP)A/G Rfyot3598-33-98U59:00:001.61.1-2.5 -ReviewedLittle Morgan 07/10/2024 11:01:48 AM > See phone encounter Coding P-Comprehensive Metabolic Pa mihir (CMP) Coding A/G Ratio 07/08/2024 00:00:00
--- OUTSIDE RECORDS SUMMARY | 2025-05-03 08:18 | XMS_ITS | Clinical Summary ---
Author Organization [facility] Address [address] [place] [id number] Care Team Providers Care Medical Staff Manager Name Role Phone Catalino Soria MD Primary Care Provider [phone] Allergies No known active allergies Medications lisinopril-hyd rochlorothiazi de (PRINZIDE,ZEST ORETIC) 10-12.5 MG per tablet Take 1 tablet by mouth Daily. Active metoprolol succinate XL (TOPROL-XL) 25 MG 24 hr tablet Take 1 tablet by mouth Daily. Active levothyroxine (SYNTHROID, LEVOTHROID) 100 MCG tablet Take 1 tablet by mouth Daily. Active fexofenadine (DANIELA) 60 MG tablet Take 1 tablet by mouth As Needed. Active ibuprofen (ADVIL,MOTRIN) 400 MG tablet Take 1 tablet by mouth Every 6 (Six) Hours As Needed for Mild Pain. Active acetaminophen (TYLENOL) 500 MG tablet Take 1 tablet by mouth Every 6 (Six) Hours As Needed for Mild Pain. Active Unable to find Take 1 each by mouth 3 (Three) Times a Day As Needed. Cyclobenzapar 5mg TID prn Active atorvastatin (LIPITOR) 20 MG tablet Daily. 1 Active DULoxetine (CYMBALTA) 30 MG capsule Take 1 capsule by mouth Daily. 2 Active Hospital, Clinic, or Other Facility Administered Medication Ordered Dose Route Frequency Start Date End Date Status sodium chloride 0.9 % flush 10 mL 10 mL IV Every 12 Hours Scheduled 11/13/2017 Active Active Problems Problem Noted Date Diagnosed Date [...] this. There was one study out of [place] that showed that thyroidectomy lowered the antibodies and improved symptoms but that is not yet standard of care unless patient has symptomatic goiter. At this point, no changes to her treatment are needed. S/P mastectomy, right 12/18/2018 Malignant neoplasm of right female breast 2016 Cancer Staging:Pathologic stage from 10/02/2016:Stage IIA(T2, N0, cM0) - Signed by Jennifer Yip MD on 01/09/2017 Resolved Problems Problem Noted Date Diagnosed Date Resolved Date Malignant neoplasm of right breast in female, estrogen receptor positive 05/01/2017 06/19/2017 Breast cancer 10/02/2016 01/09/2017 Encounters Date Type Department Care Team Description 03/01/2025 10:30 AM EDT Office Visit [facility] [address] [facility] [address] [place] [address] Akilah Stafford, STEVIE Malignant neoplasm of right breast in female, estrogen receptor positive, unspecified site of breast (Primary Dx) 03/01/2025 Travel from Last 3 Months Family History Medical History Relation Name Comments Cancer Cousin multiple Stroke Father Heart attack Mother Multiple sclerosis Sister Relation Name Status Comments Cousin multiple Alive Father Mother Sister Alive Social History Tobacco Use Types Packs/Day Years Used Date Smoking Tobacco: Never Smokeless Tobacco: Never Tobacco Cessation:Counseling Given: Not Answered Alcohol Use Standard Drinks/Week Comments No 0 (1 standard drink = 0.6 oz pur e alcohol) PHQ-2 Answer Date Recorded Retired PHQ-9: Brief Depression Severity Measure Score 0 02/27/2023 PHQ-2 Answer Date Recorded Patient Health Questionnaire-9 Score 0 03/01/2025 Comments No Sex and Gender Information Value Date Recorded Sex Assigned at Not on file Legal Sex Female 3:34 PM EDT Gender Identity Not on file Sexual Orientation Not on file Last Filed Vital Signs Vital Sign Reading Time Taken Comments Blood Pressure 170/78 03/01/2025 10:18 AM EDT Pulse 57 03/01/2025 10:18 AM EDT Temperature 36.2 C (97.1 F) 03/01/2025 10:18 AM EDT Respiratory Rate 16 03/01/2025 10:18 AM EDT Oxygen Saturation 98% 03/01/2025 10:18 AM EDT Inhaled Oxygen Concentration - - Weight 93.7 kg (206 lb 9.6 oz) 03/01/2025 10:18 AM EDT Height 160 cm (5' 2.99 ) 03/01/2025 10:18 AM EDT Body Mass Index 36.61 03/01/2025 10:18 AM EDT Plan of Treatment Upcoming Encounters Date Type Department Care Team (Late st Contact Info) Description 02/28/2026 10:00 AM EDT Office Visit [facility] [address] [facility] [address] [place] [id number] Akilah Stafford, STEVIE [address] [facility] [address] [place] [address] Health Maintenance Due Date Last Done Comments COLOGUARD 1999 COLON CANCER SCREENING 5 YEA R SIGMOIDOSCOPY 1999 CT COLONOGRAPHY 1999 FECAL OCCULT BLOOD TEST 1999 FIT Testing (1 year) 1999 ZOSTER VACCINE (1 of 2) 2004 ANNUAL WELLNESS VISIT 09/13/2016 HEPATITIS C SCREENING 09/13/2016 COVID-19 Vaccine (3 - Modern a risk series) 05/18/2021 04/20/2021, 08/10/2020, 06/29/2020 TDAP/TD VACCINES (2 - Td or Tdap) 06/11/2023 014 DXA SCAN 06/12/2023 06/12/2021, 03/06, 03/13/2017 INFLUENZA VACCINE 12/04/2024 01/01/2024, , 02/20/2021, Additional history exists MAMMOGRAM 03/12/2027 2024, 01/04, 11/25/2020, Additional history exists COLONOSCOPY 07/30/2034 07/30/2024 COLORECTAL CANCER SCREENING 07/30/2034 Pneumococcal Vaccine 50+ Completed 023, 02/20/2021, 06/25/2019 Procedures Procedure Name Priority Date/Time Associated Diagnosis Comments SCANNED - COLONOSCOPY 07/30/2024 SCANNED - MAMMO 2024 DEXA BONE DENSITY AXIAL Routine 06/12/2021 2:11 PM EST [facility] current use of aromatase inhibitor from Last 3 Months or Most Recently Relevant to Health Maintenance Results * Colonoscopy, Scan (07/30/2024) [facility] CHART REVIEW TABS Final Re sult * MAMMO Scan (2024) Anatomical Region Laterality Modality Other [facility] CHART REVIEW TABS Final Re sult * DEXA Bone Density Axial (06/12/2021 2:11 PM EST) Anatomical Region Laterality Modality Wrist, Hip, L-spine N/A Other 06/12/2021 3:10 PM EST Impressions 06/12/2021 4:13 PM EST Bone mineral density results are within normal limits. The ten year fracture risk assessment was not calculated because all T-scores were at or above -1.0. All the treatment decisions require clinical judgment and consideration of individual patient factors, including patient preferences, co-morbidities, previous drug use, risk factors not captured in the FRAX model (frailty, falls, vitamin D deficiency, increased bone turnover, interval significant decline in bone density) and possible under or over estimation of fracture risk by FRAX. Approaches to reduce osteoporosis related fracture risk include optimizing calcium and vitamin D status, appropriate weight bearing exercises and fall-prevention measurements. The National Osteoporosis Foundation recommends (http://www.nof.org/hcp/practice/wzabqbpj-qsc-duvtswhc-guidelines/clinic ans-guide) that FDA-approved medical therapies be considered in postmenopausal women and men aged equal or greater than 50 years with : a) hip or vertebral (clinical or morphometric) fracture; b) T-score of -2.5 or less at the spine or hip; c) Ten-year fracture probability by FRAX of greater than 3% for hip fracture of greater than 20% for major osteoporotic fracture. Secondary causes of bone loss should be evaluated if clinically indicated since the etiology of low BMD cannot be determined by BMD measurement alone. FOLLOWUP: Consider repeating the study in 2-3 years to reassess the patient's status or sooner if there is some new clinical indication. INTERVAL CHANGE: There was a decrease in bone mineral density of the L1-L4 vertebrae by 0.1%, and an increase in bone mineral density of the total left hip by 0.3% when compared to previous study performed on 03/16/2019. At this facility, the least significant change in the BMD at the left hip with 95% confidence is 0.743698 gm/cm2 at the hip and 0.424859 g/cm2 at the lumbar spine. This report was finalized on 06/12/2021 4:13 PM by Taran Ambrosio MD. Narrative 06/12/2021 4:13 PM EST DUAL-ENERGY X-RAY ABSORPTIOMETRY (DXA) INDICATION: Postmenopausal, screening for osteoporosis, history of glucocorticoids, prior fracture, cancer COMPARISON: Previous bone mineral density exam performed on 03/16/2019 PROCEDURE: A DXA scan was performed using a Hologic densitometer. The lumbar spine L1-L4 was evaluated as well as left total hip. The T-score compares the patient's bone mineral density with the peak bone mass of young normal patients. According to criteria established by the World Health Organization, patients with T-scores between 1.0 and 2.5 standard deviations BELOW the mean are osteopenic (low bone mass). Patients with T-scores EQUAL TO OR GREATER than 2.5 standard deviations below the mean are osteoporotic. The Z-score compares the patient bone mineral density with age and sex matched peers. According to the International Society for Clinical Densitometry's 2007 consensus conference: In women prior to menopause and men less than age 50, Z-scores, not T-scores are preferred. A Z-score of -2.0 or lower is defined as below the expected range for age and a Z-score above -2.0 is within the expected range for age. The WHO diagnostic criteria may be applied in women in the menopausal transition. Osteoporosis cannot be diagnosed in men under age 50 on the basis of BMD alone. TECHNICAL QUALITY: The study is of good technical quality. RESULTS: Lumbar Spine: The BMD measured in the L1-L4 region is 1.289 g/cm2. The average T-score is 2.2. The Z-score is 4.1. Total Hip: The BMD measured at the left total proximal femur is 1.253 g/cm2. The T-score is 2.5. The Z-score is 3.9. Femoral Neck: The BMD measured at the left femoral neck is 0.913 g/cm2. The T-score is 0.6. The Z-score is 2.2. Procedure Note Shabnam Brown PA - 06/12/2021 DUAL-ENERGY X-RAY ABSORPTIOMETRY (DXA) INDICATION: Postmenopausal, screening for osteoporosis, history of glucocorticoids, prior fracture, cancer COMPARISON: Previous bone mineral density exam performed on 03/16/2019 PROCEDURE: A DXA scan was performed using a Hologic densitometer. The lumbar spine L1-L4 was evaluated as well as left total hip. The T-score compares the patient's bone mineral density with the peak bone mass of young normal patients. According to criteria established by the World Health Organization, patients with T-scores between 1.0 and 2.5 standard deviations BELOW the mean are osteopenic (low bone mass). Patients with T-scores EQUAL TO OR GREATER than 2.5 standard deviations below the mean are osteoporotic. The Z-score compares the patient bone mineral density with age and sex matched peers. According to the International Society for Clinical Densitometry's 2007 consensus conference: In women prior to menopause and men less than age 50, Z-scores, not T-scores are preferred. A Z-score of -2.0 or lower is defined as below the expected range for age and a Z-score above -2.0 is within the expected range for age. The WHO diagnostic criteria may be applied in women in the menopausal transition. Osteoporosis cannot be diagnosed in men under age 50 on the basis of BMD alone. TECHNICAL QUALITY: The study is of good technical quality. RESULTS: Lumbar Spine: The BMD measured in the L1-L4 region is 1.289 g/cm2. The average T-score is 2.2. The Z-score is 4.1. Total Hip: The BMD measured at the left total proximal femur is 1.253 g/cm2. The T-score is 2.5. The Z-score is 3.9. Femoral Neck: The BMD measured at the left femoral neck is 0.913 g/cm2. The T-score is 0.6. The Z-score is 2.2. IMPRESSION: Bone mineral density results are within normal limits. The ten year fracture risk assessment was not calculated because all T-scores were at or above -1.0. All the treatment decisions require clinical judgment and consideration of individual patient factors, including patient preferences, co-morbidities, previous drug use, risk factors not captured in the FRAX model (frailty, falls, vitamin D deficiency, increased bone turnover, interval significant decline in bone density) and possible under or over estimation of fracture risk by FRAX. Approaches to reduce osteoporosis related fracture risk include optimizing calcium and vitamin D status, appropriate weight bearing exercises and fall-prevention measurements. The National Osteoporosis Foundation recommends (http://www.nof.org/hcp/practice/ogxmeqte-wyh-xquplvmm-guidelines/clinic ans-guide) that FDA-approved medical therapies be considered in postmenopausal women and men aged equal or greater than 50 years with : a) hip or vertebral (clinical or morphometric) fracture; b) T-score of -2.5 or less at the spine or hip; c) Ten-year fracture probability by FRAX of greater than 3% for hip fracture of greater than 20% for major osteoporotic fracture. Secondary causes of bone loss should be evaluated if clinically indicated since the etiology of low BMD cannot be determined by BMD measurement alone. FOLLOWUP: Consider repeating the study in 2-3 years to reassess the patient's status or sooner if there is some new clinical indication. INTERVAL CHANGE: There was a decrease in bone mineral density of the L1-L4 vertebrae by 0.1%, and an increase in bone mineral density of the total left hip by 0.3% when compared to previous study performed on 03/16/2019. At this facility, the least significant change in the BMD at the left hip with 95% confidence is 0.824782 gm/cm2 at the hip and 0.220246 g/cm2 at the lumbar spine. This report was finalized on 06/12/2021 4:13 PM by Taran Ambrosio MD. 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
--- NOTE | 2025-05-03 08:19 | XR_ITS ---
FINAL REPORT CLINICAL HISTORY: screening COMPARISON: None FINDINGS: Using L1-4, the bone mineral density of the spine is 1.318 g/cm2, corresponding to T-score of 2.5, and a Z-score of 4.6. This corresponds to normal. Using the left hip, the bone mineral density of the femoral neck is 1.060 g/cm2, corresponding to a T-score of 1.0, and a Z-score of 2.5. This corresponds to normal. Using the right hip, the bone mineral density of the femoral neck is 1.101 g/cm2, corresponding to a T-score of 1.3, and a Z-score of 2.9. This corresponds to normal. NOTE: T-score: Standard deviation compared with peak bone mass of young adult mean. *Following the recommendations of the International Society of Bone densitometry, classification of hip BMD is based on the lower of two T-scores; total hip or femoral neck. IMPRESSION: Normal bone mineral density of the lumbar spine and bilateral hips. Reviewed, Interpreted and Dictated by Regla Montalvo MD Transcribed by Kortney Botello Authenticated and [facility]
--- NOTE | 2025-05-03 08:19 | MM_ITS ---
PROCEDURE INFORMATION: Exam: MG Left Screening 3D Mammography Exam date and time: 05/03/2025 8:25 AM Age: 70 years old Clinical indication: Screening examination; Personal history of right breast cancer; Mastectomy TECHNIQUE: Imaging protocol: Left Screening tomosynthesis and 2D mammography including computer-aided detection (CAD) when performed. COMPARISON: 1. MG MM DIG SC MAMM UNILAT LT CAD 03/11/2024 10:10 AM 2. MG MM DIG SC MAMM UNILAT LT CAD 01/17/2023 9:46 AM FINDINGS: MAMMOGRAPHY: Breast composition: There are scattered areas of fibroglandular density. Mass: There is no new or suspicious mass. Architectural distortion: None. Calcifications: No suspicious calcifications. Asymmetric density: None. Skin thickening: None. Axillary adenopathy: None. IMPRESSION: No mammographic evidence of malignancy. Annual screening is recommended unless otherwise clinically indicated. ASSESSMENT: BI-RADS Category 1: Negative.
--- OUTSIDE RECORDS SUMMARY | 2025-05-03 08:19 | XMS_ITS | Patient Health Record ---
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 Name Role Phone Catalino Soria Primary Care Provider Allergies No Known Allergies Results Component Value Reference Range Notes P-Comprehensive Metabolic Pa mihir (CMP) Reviewed date:07/10/2024 11:01:56 AM Interpretation:bun 31 Performing Lab: Notes/Report: Test performed by [facility] [address] [place] [address] , [address], [place] [address] Vince Barnes MD, Medical Billing Service CLIA: [id number] Sodium 141 135-145 mmol/L Potassium 4.6 3.5-5.3 [...] Interpretation:Normal Performing Lab: Notes/Report: Test performed by [facility] [address] [place] [address] [address], [place] [address] Vince Barnes MD, Medical Billing Service CLIA: [id number] Thyroxine Free (free T4) 1.87 0.86-1.76 ng/dL P-Lipid Panel Reviewed date:07/10/2024 11:01:56 AM Interpretation:Normal Performing Lab: Notes/Report: Test performed by [facility] [address] [place] [address] [address], [place] [address] Vince Barnes MD, Medical Billing Service CLIA: [id number] Cholesterol 147 <200 mg/dL Triglycerides 37 <150 [...] Interpretation:Normal Performing Lab: Notes/Report: Test performed by [facility] [address] [place], [place] [address] [place] , [address], [place] [address] Vince Barnes MD, Medical Billing Service CLIA: [id number] TSH 1.44 0.43-5.25 mU/L P-Microalbumin/Creatinine, R andom Urine Sample Reviewed date:07/10/2024 11:01:57 AM Interpretation:Normal Performing Lab: Notes/Report: Test performed by [facility] [address] [place] [address] [address], [place] [address] Vince Barnes MD, Medical Billing Service CLIA: [id number] Albumin/Creatinine Ratio, Urine <3.8 0-30 ug/m g Microalbumin, Urine, Random <0.3 Creatinine, Urine 77.9 Reason For Referral No Information Medications Medication SIG (Take, Route, Frequency, Duration) Notes Start Date End Date Status DULoxetine HCl 30 MG 1 capsule Orally On ce a day; Duration: 90 days Active Metoprolol Succinate ER 25 MG 1 tablet Orally Once a day; Duration: 90 days Active Atorvastatin Calcium 20 MG 1 tab(s) oral ly once a day; Duration: 90 days Active Levothyroxine Sodium 100 MCG 1 tablet in the morning on an empty stomach Orally Once a day; Duration: 90 days Active Lisinopril-hydroCHLOROthiazi de 10-12.5 MG 1 tablet Orally Once a day; Duration: 90 days Active Pantoprazole Sodium 20 MG 1 tablet 1/2 t o 1 hour before morning meal Orally Once a day; Duration: 90 days Active Immunizations Vaccine Route Administration Date Status Ozzie Mendietafamiliane (6mos and older)-trivalent IM Intramuscular 03/30/2013 Administered Tetanus Tdap-Adacel (over 7yrs) IM Intramuscular 06/11/2013 Administered Prevnar (PCV20) IM Intramuscular 06/26/2022 Administered l eft lower deltoid Prevnar (PCV13) IM Intramuscular 06/25/2019 Administered PNEUMOVAX 23 VACCINE IM Intramuscular 02/20/2021 Administered Fluzone Quad (6months&older) IM Intramuscular 02/15/2017 Administered Fluzone Quad (6months&older) IM Intramuscular 01/28/2018 Administered Fluzone High Dose (65yr and older) IM Intramuscular 05/21/2019 Administered Fluzone High Dose (65yr and older) IM Intramuscular 02/20/2021 Administered Fluzone High Dose (65yr and older) IM Intramuscular 06/26/2022 Administered left upper deltoid Fluzone High Dose (65yr and older) IM Intramuscular 01/01/2024 Administered COVID 19 Moderna Unknown 06/29/2020 Administered COVID 19 Moderna Unknown 08/10/2020 Administered COVID 19 Moderna Unknown 04/20/2021 Administered Problems Problem Type SNOMED Code ICD Code Onset Dates Problem Status W/U Status Risk Notes Problem Essential hypertension (79238735) HTN [Hypertension] (401.9) Active confirmed Problem Hypothyroidism (42552151) Hypothyroidism NOS (244.9) Active confirmed Problem Malignant neoplasm o f female breast (470238200) Malignant neoplasm of unspecified site of right female breast (C50.911) Active confirmed Problem Essential hypertension (52023420) Essential hypertension (I10) Active confirmed Problem Sciatic nerve lesion (538911465) Piriformis syndrome of right side (G57.01) Active confirmed Problem Lymphedema (45064596) Lymphedema (I89.0) Active confirmed Problem Chronic pain (61079268) Other chronic pain (G89.29) Active confirmed Problem Chiari malformation (978233705) 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) Active confirmed Problem Estrogen receptor positive tumor (282268955) 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) Active confirmed Problem Chronic pain (69583235) Other chronic pain (G89.29) Active confirmed Problem Obese class II (516316312329181) BMI 35.0-35.9,adult (Z68.35) Active confirmed Problem Acquired hypothyroidism (409835665) Acquired hypothyroidism (E03.9) Active confirmed Problem Pure hypercholesterolemia (181712780) Pure hypercholesterolemia (E78.00) Active confirmed Problem Malignant neoplasm o f female breast (518109815) Malignant neoplasm of right female breast, unspecified site of breast (C50.911) Active confirmed Problem Obesity (109443438) Non morbid o besity (E66.9) Active confirmed Problem Arthritis of both knees (1758941327171905) Arthritis of both knees (M17.0) Active confirmed Vital Signs Heart Rate 70 /min 01/08/2025 Blood pressure diastolic 78 mm Hg 01/08/2025 Height 64 in 01/08/2025 Blood pressure systolic 132 mm Hg 01/08/2025 Weight 207 lbs 01/08/2025 BMI 35.53 kg/m2 01/08/2025 Encounters Encounter Location Date Provider Diagnosis [facility] [address] [place], [place] [id number] 05/07/2024 Catalino Lattimore Arthritis of both kn ees M17.0 and Other chronic pain G89.29 [facility] [address] [place], [place] [id number] 07/08/2024 Catalino Lattimore Essential hypertensi on I10 ; Pure hypercholesterolemia E78.00 ; Acquired hypothyroidism E03.9 and Arthritis of both knees M17.0 [facility] [address] [place], [place] [id number] 01/08/2025 Catalino Lattimore Essential hypertensi on I10 ; Acquired hypothyroidism E03.9 ; Pure hypercholesterolemia E78.00 ; Arthritis of both knees M17.0 ; Other chronic pain G89.29 ; Non morbid obesity E66.9 ; Arnold-Chiari syndrome without spina bifida or hydrocephalus Q07.00 and BMI 35.0-35.9,adult Z68.35 [facility] [address] [facility] [address] [place] [id number] 05/15/2024 Catalino Lattimore [facility] [address] [place], [place] [id number] 07/10/2024 Catalino Lattimore [facility] [address] [place] [id number] 01/18/2025 Catalino Lattimore Encounter for screen ing for osteoporosis Z13.820 and Breast cancer screening Z12.31 [facility] [address] [place] [id number] 04/08/2025 Catalino Lattimore Other chronic pain G 89.29 Assessments Encounter Date Diagnosis (ICD Code) Assessment Notes Treatment Notes Treatment Clinical Notes Section Notes 05/07/2024 Other chronic pain (ICD-10 - G89.29) 05/07/2024 Arthritis of both kn ees (ICD-10 - M17.0) 07/08/2024 Essential hypertensi on (ICD-10 - I10) 07/08/2024 Pure hypercholesterolemia (ICD-10 - E78.00) 01/08/2025 Essential hypertensi on (ICD-10 - I10) 01/08/2025 Acquired hypothyroid ism (ICD-10 - E03.9) 01/18/2025 Encounter for screen ing for osteoporosis (ICD-10 - Z13.820) 04/08/2025 Other chronic pain (ICD-10 - G89.29) 01/18/2025 Breast cancer screen ing (ICD-10 - Z12.31) 01/08/2025 Pure hypercholesterolemia (ICD-10 - E78.00) 07/08/2024 Acquired hypothyroid ism (ICD-10 - E03.9) 07/08/2024 Arthritis of both kn ees (ICD-10 - M17.0) 01/08/2025 Arthritis of both kn ees (ICD-10 - M17.0) 01/08/2025 Other chronic pain (ICD-10 - G89.29) 01/08/2025 Non morbid obesity (ICD-10 - E66.9) 01/08/2025 Arnold-Chiari syndro me without spina bifida or hydrocephalus (ICD-10 - Q07.00) 01/08/2025 BMI 35.0-35.9,adult (ICD-10 - Z68.35) Plan Of Treatment Pending Test Test Name Order Date Bone density 01/18/2025 colonoscopy 01/01/2024 Mammogram 01/18/2025 Next Appt Details Provider Name:Catalino Coy ry, 07/08/2025 09:15:00 AM, [address], [address], [place], [id number], Insurance Providers Payer Name Payer Address Payer Phone Subscriber Number Group Number Insured Name Patient Relationship to Insured Coverage Start Date Coverage End Date MEDICARE PART B [address] [address] [address] [place] [address] [id number] Morena Smith Self - [place] [address] [id number] Morena Smith Self - patient is the insured Medical (General) History Medical History History ICD Code Hypertension Hypothyroidism Hyperlipidemia Chiari Malformation Colon Polyps Allergic Rhinitis Breast Cancer - Stage II (ER +, AR+, Her2/radha+, Lymph node -) s/p right mastectomy 10/02/16 and chemo Surgical History Surgery Date(Month/Year) Brain Decompression 02/2011 Colonoscopy - 2013, 2018 2013, 2018 RT Mastectomy 10/02/2016 Hospitalization History Reason Date(Month/Year)
== END 2025-05-03 23:59 | disposition home or self-care (01) ==
LOC: RAD 08:15
PROVIDERS: PCP Family Medicine; Visit Provider Family Medicine
DX: Z12.31 Encounter for screening mammogram for malignant neoplasm of breast (principal); R92.322 Mammographic fibroglandular density, left breast; Z90.11 Acquired absence of right breast and nipple; Z85.3 Personal history of malignant neoplasm of breast; M81.0 Age-related osteoporosis without current pathological fracture
CPT/HCPCS: 77063; 77067; 77080